=== PATIENT | female | born 1935 | race American Indian/Alaskan Native ===

== ENCOUNTER 2017-04-07 15:08 | Emergency (ER) | payer MEDICARE ==
[~2017-04-07] VITALS: Ht 157.5 cm; Wt 63.5 kg
[~2017-04-07 15:08] MED LIST: ACET325 PO; ACET500 PO; ALBIPROI INH; ALBU.083IS IH; ALBU3IS INH; ALBU90OI6; ALBU90OI6 INH; AMLO10 PO; AMLO5 PO; ASPI81CH PO; AZIT250 PO; AZIT500 PO; Accuneb1.25 MG/3; Advair Hfa 115-12 GM INH; Albuterol2.5 MG/0.5 INH; BECL40OI INH; Bacid1 EACH PO; CARV3.125 PO; CEFP200 PO; CEPH500 PO; CHLO25B; CHOL10002 PO; CLOP75; CYCL10 PO; Cardizem CD 24240 MG PO; Cartia Xt240 MG PO; DILT120 PO; DILT180 PO; DILT180ER PO; DOCU100 PO; DULERA 100 MCG/13 GM INH; DULERA 200 MCG/13 GM INH; ERGO400 PO; FAMO20 PO; FISH1000 PO; FLUSAL115; FLUSAL2505 INH; Flonase 0.05% N16 GM; GUAI600T33 PO; LEVFLO500 PO; LORA10 PO; LOSA50 PO; LOSARTAN POTAS100 MG PO; MECL25 PO; METO50 PO; METO50ER PO; MULVITMIND PO; OMEP20ER PO; ONDA4 PO; OXYACE7.5T PO; POTA10T; PRED10 PO; PRED20 PO; Prednisone20 MG PO; SULTRIDS PO; TELM80; TIOT18 INH; VITAMINS; Ventolin Soln3 ML INH; Vibramycin100 MG PO; Vitamin B Comple1 EA PO; WARF5 PO
[2017-04-07 16:00] LABS: BASOPHILS ABSOLUTE AUTO 0.03 K/mm3 (0.00-0.23); BASOPHILS PERCENT AUTO 0 % (0-2); EOSINOPHILS ABSOLUTE AUTO 0.21 K/mm3 (0.00-0.68); EOSINOPHILS PERCENT AUTO 3 % (0-6); Hematocrit 47.6 % (33.0-51.0); Hemoglobin 16.2 g/dL (11.5-16.0); IMMATURE GRAN ABSOLUTE AUTO 0.02 K/mm3 (0.00-0.10); IMMATURE GRAN PERCENT AUTO 0 % (0-1); LYMPHOCYTES ABSOLUTE AUTO 2.17 K/mm3 (0.84-5.20); LYMPHOCYTES PERCENT AUTO 32 % (21-46); MONOCYTES PERCENT AUTO 12 % (4-13); Mean Corpuscular HGB 29.6 pg (26.0-34.0); Mean Corpuscular Volume 87 fL (80-100); Mean Platelet Volume 8.9 fL (9.1-12.4); NEUTROPHILS ABSOLUTE AUTO 3.61 K/mm3 (1.96-9.15); NEUTROPHILS PERCENT AUTO 53 % (41-73); Platelet Count 248 K/mm3 (150-400); RDW Coefficient Variation 13.5 % (11.7-14.2); RDW Standard Deviation 42.9 fL (35.1-46.3); Red Blood Cell Count 5.47 M/mm3 (3.80-5.20); White Blood Cell Count 6.84 K/mm3 (4.00-11.30)
[2017-04-07 16:20] LABS: Alanine Aminotransfer (ALT/SGP 29 U/L (12-78); Albumin/Globulin Ratio 0.8 (0.8-1.8); Alk Phos 70 U/L (50-136); Anion Gap 10 mmol/L (6-16); Aspartate Aminotrans (AST/SGOT 20 U/L (12-37); Bilirubin, Total 0.3 mg/dL (0.1-1.0); Blood Urea Nitrogen 16 mg/dL (8-24); Bun/Creatinine Ratio 18.5 (12.0-20.0); CO2, Blood 27 mmol/L (21-32); Calcium, Blood 8.7 mg/dL (8.5-10.1); Chloride, Blood 105 mmol/L (98-108); Creatinine, Blood 0.86 mg/dL (0.40-1.00); Globulin, Blood 3.6 g/dL (2.2-4.0); Glomerular Filtration Rate >60 (60-); Glucose, Blood 94 mg/dL (70-99); Potassium, Blood 3.1 mmol/L (3.5-5.5); Sodium, Blood 142 mmol/L (136-145); Total Protein, Blood 6.6 g/dL (6.4-8.2)
[2017-04-07] MEDS ORDERED: Zofran Odt4 MG PO (19:24)
[2017-04-07 20:42] LABS: Source, Urine Clean Catch
[2017-04-07 20:46] LABS: Bilirubin, Urine Neg (Neg); Blood, Urine 1+ (Neg); Glucose Qualitative, Urine Neg (Neg); Ketones, Urine 1+ (Neg); Leukocyte Esterase, Urine 3+ (Neg); Nitrite, Urine Neg (Neg); Protein, Urine Neg (Neg); Specific Gravity, Urine 1.015 (1.003-1.022); Urobilinogen, Urine NORM (Normal)
[2017-04-07 20:53] LABS: Appearance, Urine Hazy (Clear); Color, Urine Yellow (P-Yellow); Red Blood Cells, Urine 0-2 /hpf (0-2); White Blood Cells, Urine 50-100 /hpf (0-5)
[2017-04-07 20:54] LABS: Bacteria Few /hpf; Mucus Light (0-Heavy); Squamous Epithelial Cells Rare /hpf (Few)
[2017-04-07] MEDS ORDERED: POTA20PAC PO (21:33)
[2017-04-07] MEDS ORDERED: CEPH500 PO ×2 (21:33→21:41)
[2017-04-07] MEDS ORDERED: K-Dur20 MEQ PO (21:41)
== END 2017-04-07 21:51 | disposition home or self-care (01) ==
LOC: ER 15:08
PROVIDERS: Emergency Medicine
DX: E86.0 Dehydration (principal); R11.2 Nausea with vomiting, unspecified; N39.0 Urinary tract infection, site not specified; R19.7 Diarrhea, unspecified; E87.6 Hypokalemia; I10 Essential (primary) hypertension; J44.9 Chronic obstructive pulmonary disease, unspecified; Z88.0 Allergy status to penicillin; Z88.5 Allergy status to narcotic agent; Z88.1 Allergy status to other antibiotic agents; Z88.8 Allergy status to other drugs, medicaments and biological substances; Z79.82 Long term (current) use of aspirin; Z79.2 Long term (current) use of antibiotics; Z79.52 Long term (current) use of systemic steroids; Z79.899 Other long term (current) drug therapy
CPT/HCPCS: 36415; 71046; 80053; 81001; 83690; 83735; 85025; 87086; 96361; 96365; 96375; 96376; 99284; J0696; J2270; J2405; J2550; J7030

== ENCOUNTER 2017-06-19 12:21 | Inpatient (IN) | payer MEDICARE ==
[~2017-06-19] VITALS: Ht 157.5 cm; Wt 53.3 kg
[~2017-06-19 12:21] MED LIST changes: +K-Dur20 MEQ PO; +POTA20PAC PO; +Zofran Odt4 MG PO
[2017-06-19 12:56] LABS: BASOPHILS ABSOLUTE AUTO 0.03 K/mm3 (0.00-0.23); BASOPHILS PERCENT AUTO 0 % (0-2); EOSINOPHILS ABSOLUTE AUTO 0.07 K/mm3 (0.00-0.68); EOSINOPHILS PERCENT AUTO 1 % (0-6); Hematocrit 44.6 % (33.0-51.0); Hemoglobin 14.5 g/dL (11.5-16.0); IMMATURE GRAN ABSOLUTE AUTO 0.05 K/mm3 (0.00-0.10); IMMATURE GRAN PERCENT AUTO 1 % (0-1); LYMPHOCYTES ABSOLUTE AUTO 0.86 K/mm3 (0.84-5.20); LYMPHOCYTES PERCENT AUTO 8 % (21-46); MONOCYTES ABSOLUTE AUTO 0.93 K/mm3 (0.16-1.47); MONOCYTES PERCENT AUTO 8 % (4-13); Mean Corpuscular HGB Conc 32.5 g/dL (31.5-36.5); Mean Corpuscular Volume 89 fL (80-100); Mean Platelet Volume 9.3 fL (9.1-12.4); NEUTROPHILS ABSOLUTE AUTO 9.17 K/mm3 (1.96-9.15); NEUTROPHILS PERCENT AUTO 83 % (41-73); Platelet Count 182 K/mm3 (150-400); RDW Coefficient Variation 13.8 % (11.7-14.2); White Blood Cell Count 11.11 K/mm3 (4.00-11.30)
[2017-06-19 13:19] LABS: Alanine Aminotransfer (ALT/SGP 31 U/L (12-78); Albumin, Blood 2.9 g/dL (3.4-5.0); Albumin/Globulin Ratio 0.7 (0.8-1.8); Alk Phos 98 U/L (50-136); Anion Gap 7 mmol/L (6-16); Aspartate Aminotrans (AST/SGOT 24 U/L (12-37); Blood Urea Nitrogen 15 mg/dL (8-24); Bun/Creatinine Ratio 17.6 (12.0-20.0); CO2, Blood 29 mmol/L (21-32); Calcium, Blood 8.8 mg/dL (8.5-10.1); Chloride, Blood 102 mmol/L (98-108); Creatinine, Blood 0.85 mg/dL (0.40-1.00); Globulin, Blood 4.3 g/dL (2.2-4.0); Glomerular Filtration Rate >60 (60-); Glucose, Blood 179 mg/dL (70-99); Potassium, Blood 3.5 mmol/L (3.5-5.5); Sodium, Blood 138 mmol/L (136-145); Total Protein, Blood 7.2 g/dL (6.4-8.2); Troponin I <0.015 ng/mL (0.000-0.040)
[2017-06-19 15:37] LABS: Influenza A Negative (NEGATIVE); Influenza B Negative (NEGATIVE)
[2017-06-19] MEDS ORDERED: CLARITIN10 MG PO (17:42)
[2017-06-24 12:47] LABS: PCO2 Arterial 48.2 mmHg (35-45); PO2 Arterial 83.6 mmHg (80-100); pH Blood Arterial 7.48 (7.35-7.45)
[2017-06-26] MEDS ORDERED: PRED20 PO (11:51)
[2017-06-26] MEDS ORDERED: BUDE.5 INH (11:52)
[2017-06-26] MEDS ORDERED: Duoneb 2.5-0.5 M3 ML INH (11:53)
== END 2017-06-26 13:24 | disposition home or self-care (01) | DRG 189 ==
LOC: ER 12:21 → MEDS 15:52 → ENPENDDIS 06-26 09:51 → MEDS 06-26 13:24
PROVIDERS: Emergency Medicine; Family Medicine
DX: J96.21 Acute and chronic respiratory failure with hypoxia (principal); E44.0 Moderate protein-calorie malnutrition; R64 Cachexia; J44.1 Chronic obstructive pulmonary disease with (acute) exacerbation; Z99.81 Dependence on supplemental oxygen; J96.12 Chronic respiratory failure with hypercapnia; E87.6 Hypokalemia; I10 Essential (primary) hypertension; M81.0 Age-related osteoporosis without current pathological fracture; I73.9 Peripheral vascular disease, unspecified; Z68.20 Body mass index [BMI] 20.0-20.9, adult; Z86.718 Personal history of other venous thrombosis and embolism; Z88.1 Allergy status to other antibiotic agents; Z88.5 Allergy status to narcotic agent; Z88.0 Allergy status to penicillin; Z88.8 Allergy status to other drugs, medicaments and biological substances; Z79.82 Long term (current) use of aspirin; Z79.899 Other long term (current) drug therapy; Z87.891 Personal history of nicotine dependence
CPT/HCPCS: 36415; 36600; 71046; 80053; 82803; 83880; 84484; 85025; 87804; 93005; 93010; 93306; 94010; 94640; 94644; 94664; 94667; 94760; 96365; 96375; 97161; 98960; 99285; C9113; G8978; G8979; G8980; J1650; J1956; J2930

== ENCOUNTER 2017-07-17 09:36 | Emergency (ER) | payer MEDICARE ==
[~2017-07-17] VITALS: Ht 157.5 cm; Wt 63.5 kg
[~2017-07-17 09:36] MED LIST changes: +BUDE.5 INH; +CLARITIN10 MG PO; +Duoneb 2.5-0.5 M3 ML INH
[2017-07-17 10:39] LABS: BASOPHILS ABSOLUTE AUTO 0.05 K/mm3 (0.00-0.23); BASOPHILS PERCENT AUTO 1 % (0-2); EOSINOPHILS ABSOLUTE AUTO 0.36 K/mm3 (0.00-0.68); EOSINOPHILS PERCENT AUTO 6 % (0-6); Hematocrit 45.4 % (33.0-51.0); Hemoglobin 14.5 g/dL (11.5-16.0); IMMATURE GRAN ABSOLUTE AUTO 0.04 K/mm3 (0.00-0.10); IMMATURE GRAN PERCENT AUTO 1 % (0-1); LYMPHOCYTES ABSOLUTE AUTO 0.77 K/mm3 (0.84-5.20); LYMPHOCYTES PERCENT AUTO 13 % (21-46); MONOCYTES ABSOLUTE AUTO 0.51 K/mm3 (0.16-1.47); MONOCYTES PERCENT AUTO 9 % (4-13); Mean Corpuscular HGB 29.2 pg (26.0-34.0); Mean Corpuscular HGB Conc 31.9 g/dL (31.5-36.5); Mean Corpuscular Volume 92 fL (80-100); Mean Platelet Volume 8.8 fL (9.1-12.4); NEUTROPHILS ABSOLUTE AUTO 4.26 K/mm3 (1.96-9.15); NEUTROPHILS PERCENT AUTO 71 % (41-73); Platelet Count 142 K/mm3 (150-400); RDW Coefficient Variation 15.1 % (11.7-14.2); RDW Standard Deviation 50.5 fL (35.1-46.3); Red Blood Cell Count 4.96 M/mm3 (3.80-5.20); White Blood Cell Count 5.99 K/mm3 (4.00-11.30)
[2017-07-17 11:05] LABS: Alanine Aminotransfer (ALT/SGP 20 U/L (12-78); Albumin, Blood 2.6 g/dL (3.4-5.0); Albumin/Globulin Ratio 0.6 (0.8-1.8); Alk Phos 61 U/L (50-136); Anion Gap 5 mmol/L (6-16); Aspartate Aminotrans (AST/SGOT 13 U/L (12-37); Bilirubin, Total 0.9 mg/dL (0.1-1.0); Blood Urea Nitrogen 17 mg/dL (8-24); Bun/Creatinine Ratio 19.7 (12.0-20.0); CO2, Blood 29 mmol/L (21-32); Calcium, Blood 8.7 mg/dL (8.5-10.1); Chloride, Blood 103 mmol/L (98-108); Creatinine, Blood 0.86 mg/dL (0.40-1.00); Globulin, Blood 4.2 g/dL (2.2-4.0); Glomerular Filtration Rate >60 (60-); Glucose, Blood 116 mg/dL (70-99); Potassium, Blood 4.4 mmol/L (3.5-5.5); Sodium, Blood 137 mmol/L (136-145); Total Protein, Blood 6.8 g/dL (6.4-8.2); Troponin I <0.015 ng/mL (0.000-0.040)
[2017-07-17] MEDS ORDERED: Advair Hfa 230-12 GM (11:19)
[2017-07-17] MEDS ORDERED: TIOT18 INH (11:19)
[2017-07-17] MEDS ORDERED: Flonase 0.05% N16 GM (11:20)
[2017-07-17] MEDS ORDERED: CHOL10002 PO (11:21)
[2017-07-17] MEDS ORDERED: LOSA50 PO (11:21)
[2017-07-17] MEDS ORDERED: DILT120 PO (11:22)
[2017-07-17] MEDS ORDERED: CLARITIN PO (11:23)
[2017-07-17] MEDS ORDERED: FISH OIL OMEGA1 EAC2 PO (11:24)
[2017-07-17] MEDS ORDERED: Hair, Skin & N1 EACH PO (11:24)
[2017-07-17] MEDS ORDERED: PRED20 PO (13:21)
== END 2017-07-17 14:33 | disposition home or self-care (01) ==
LOC: ER 09:36
PROVIDERS: Physician Assistant
DX: J44.9 Chronic obstructive pulmonary disease, unspecified (principal); I10 Essential (primary) hypertension; Z87.891 Personal history of nicotine dependence; Z88.0 Allergy status to penicillin; Z88.5 Allergy status to narcotic agent; Z88.8 Allergy status to other drugs, medicaments and biological substances; Z88.1 Allergy status to other antibiotic agents; Z79.82 Long term (current) use of aspirin; Z79.899 Other long term (current) drug therapy; Z79.51 Long term (current) use of inhaled steroids
CPT/HCPCS: 36415; 71046; 80053; 84484; 85025; 93005; 93010; 94640; 96374; 99284; J2930

== ENCOUNTER 2017-07-27 16:40 | Inpatient (IN) | payer MEDICARE ==
[~2017-07-27] VITALS: Ht 157.5 cm; Wt 62.7 kg
[~2017-07-27 16:40] MED LIST changes: +Advair Hfa 230-12 GM; +CLARITIN PO; +FISH OIL OMEGA1 EAC2 PO; +Hair, Skin & N1 EACH PO
[2017-07-27 17:35] LABS: BASOPHILS ABSOLUTE AUTO 0.06 K/mm3 (0.00-0.23); BASOPHILS PERCENT AUTO 1 % (0-2); EOSINOPHILS ABSOLUTE AUTO 0.24 K/mm3 (0.00-0.68); EOSINOPHILS PERCENT AUTO 3 % (0-6); Hematocrit 43.9 % (33.0-51.0); Hemoglobin 14.3 g/dL (11.5-16.0); IMMATURE GRAN PERCENT AUTO 4 % (0-1); LYMPHOCYTES ABSOLUTE AUTO 0.99 K/mm3 (0.84-5.20); LYMPHOCYTES PERCENT AUTO 10 % (21-46); MONOCYTES ABSOLUTE AUTO 0.95 K/mm3 (0.16-1.47); MONOCYTES PERCENT AUTO 10 % (4-13); Mean Corpuscular HGB 29.4 pg (26.0-34.0); Mean Corpuscular HGB Conc 32.6 g/dL (31.5-36.5); Mean Corpuscular Volume 90 fL (80-100); Mean Platelet Volume 8.6 fL (9.1-12.4); NEUTROPHILS PERCENT AUTO 72 % (41-73); Platelet Count 274 K/mm3 (150-400); RDW Coefficient Variation 15.2 % (11.7-14.2); RDW Standard Deviation 50.5 fL (35.1-46.3); Red Blood Cell Count 4.86 M/mm3 (3.80-5.20); White Blood Cell Count 9.54 K/mm3 (4.00-11.30)
[2017-07-27 17:46] LABS: Troponin I <0.015 ng/mL (0.000-0.040)
[2017-07-27 17:53] LABS: Alanine Aminotransfer (ALT/SGP 19 U/L (12-78); Albumin, Blood 2.6 g/dL (3.4-5.0); Albumin/Globulin Ratio 0.7 (0.8-1.8); Alk Phos 59 U/L (50-136); Anion Gap 4 mmol/L (6-16); Aspartate Aminotrans (AST/SGOT 16 U/L (12-37); Bilirubin, Total 0.3 mg/dL (0.1-1.0); Blood Urea Nitrogen 15 mg/dL (8-24); Bun/Creatinine Ratio 16.4 (12.0-20.0); CO2, Blood 31 mmol/L (21-32); Calcium, Blood 9.1 mg/dL (8.5-10.1); Chloride, Blood 105 mmol/L (98-108); Creatinine, Blood 0.92 mg/dL (0.40-1.00); Globulin, Blood 3.8 g/dL (2.2-4.0); Glomerular Filtration Rate >60 (60-); Glucose, Blood 112 mg/dL (70-99); Potassium, Blood 4.5 mmol/L (3.5-5.5); Sodium, Blood 140 mmol/L (136-145); Total Protein, Blood 6.4 g/dL (6.4-8.2)
[2017-07-27] MEDS ORDERED: DILT120 PO (22:00)
[2017-07-27] MEDS ORDERED: FLUT1DIS5 (22:02)
[2017-07-27] MEDS ORDERED: FLUT1DIS5 INH (22:03)
[2017-07-28 04:54] LABS: Source, Urine Clean Catch
[2017-07-28 04:58] LABS: Appearance, Urine Cloudy (Clear); Bilirubin, Urine Neg (Neg); Blood, Urine 4+ (Neg); Color, Urine Yellow (P-Yellow); Glucose Qualitative, Urine 4+ (Neg); Ketones, Urine 1+ (Neg); Leukocyte Esterase, Urine 3+ (Neg); Nitrite, Urine Neg (Neg); Protein, Urine 1+ (Neg); Urobilinogen, Urine NORM (Normal)
[2017-07-28 05:18] LABS: White Blood Cells, Urine TNTC /hpf (0-5)
[2017-07-28 05:20] LABS: Squamous Epithelial Cells Rare /hpf (Few)
[2017-07-28 05:21] LABS: Bacteria Mod /hpf
[2017-07-28 17:36] LABS: PCO2 Arterial 43.1 mmHg (35-45); pH Blood Arterial 7.47 (7.35-7.45)
[2017-07-30 05:54] LABS: BASOPHILS ABSOLUTE AUTO 0.06 K/mm3 (0.00-0.23); BASOPHILS PERCENT AUTO 0 % (0-2); EOSINOPHILS PERCENT AUTO 0 % (0-6); Hematocrit 39.7 % (33.0-51.0); Hemoglobin 12.9 g/dL (11.5-16.0); IMMATURE GRAN PERCENT AUTO 3 % (0-1); LYMPHOCYTES ABSOLUTE AUTO 0.59 K/mm3 (0.84-5.20); LYMPHOCYTES PERCENT AUTO 3 % (21-46); MONOCYTES ABSOLUTE AUTO 0.42 K/mm3 (0.16-1.47); MONOCYTES PERCENT AUTO 2 % (4-13); Mean Corpuscular HGB Conc 32.5 g/dL (31.5-36.5); Mean Corpuscular Volume 89 fL (80-100); NEUTROPHILS PERCENT AUTO 92 % (41-73); Platelet Count 297 K/mm3 (150-400); RDW Coefficient Variation 14.7 % (11.7-14.2); RDW Standard Deviation 48.1 fL (35.1-46.3); Red Blood Cell Count 4.45 M/mm3 (3.80-5.20); White Blood Cell Count 22.47 K/mm3 (4.00-11.30)
[2017-07-30 06:08] LABS: Anion Gap 6 mmol/L (6-16); Blood Urea Nitrogen 27 mg/dL (8-24); Bun/Creatinine Ratio 29.1 (12.0-20.0); CO2, Blood 30 mmol/L (21-32); Calcium, Blood 8.8 mg/dL (8.5-10.1); Chloride, Blood 105 mmol/L (98-108); Creatinine, Blood 0.93 mg/dL (0.40-1.00); Glomerular Filtration Rate >60 (60-); Glucose, Blood 166 mg/dL (70-99); Sodium, Blood 141 mmol/L (136-145)
[2017-07-30 09:27] LABS: Mean Platelet Volume 9.8 fL (9.1-12.4); Platelet Count 311 K/mm3 (150-400)
[2017-07-30] MEDS ORDERED: ENOX100I SC (13:07)
[2017-07-30] MEDS ORDERED: LEVO750 PO (13:08)
[2017-07-30] MEDS ORDERED: WARF5 PO (13:09)
== END 2017-07-30 14:01 | disposition home or self-care (01) | DRG 189 ==
LOC: ER 16:40 → MEDS 19:26 → ENPENDDIS 07-30 09:45 → MEDS 07-30 14:01
PROVIDERS: Internal Medicine; Pharmacist
DX: J96.21 Acute and chronic respiratory failure with hypoxia (principal); I26.99 Other pulmonary embolism without acute cor pulmonale; J44.1 Chronic obstructive pulmonary disease with (acute) exacerbation; N39.0 Urinary tract infection, site not specified; Z99.81 Dependence on supplemental oxygen; E78.5 Hyperlipidemia, unspecified; I10 Essential (primary) hypertension; Z66 Do not resuscitate; Z51.5 Encounter for palliative care; Z86.711 Personal history of pulmonary embolism; Z86.718 Personal history of other venous thrombosis and embolism; Z79.01 Long term (current) use of anticoagulants; I49.3 Ventricular premature depolarization; D64.9 Anemia, unspecified; B96.5 Pseudomonas (aeruginosa) (mallei) (pseudomallei) as the cause of diseases classified elsewhere
CPT/HCPCS: 36415; 36600; 71046; 71260; 78582; 80048; 80053; 81001; 82803; 83880; 84484; 85025; 85049; 85379; 85730; 87077; 87086; 87186; 93005; 93010; 93970; 94640; 94644; 94760; 96374; 99285; A9540; A9558; J1200; J1644; J1650; J2920; J2930; J7030; Q9967

== ENCOUNTER 2017-07-31 00:07 | Day surgery (SDC) | payer MEDICARE ==
[~2017-07-31 00:07] MED LIST changes: +ENOX100I SC; +FLUT1DIS5; +FLUT1DIS5 INH; +LEVO750 PO
== END 2017-07-31 11:40 | disposition home or self-care (01) ==
LOC: ATC 00:07
DX: J44.1 Chronic obstructive pulmonary disease with (acute) exacerbation (principal); J96.11 Chronic respiratory failure with hypoxia; Z99.81 Dependence on supplemental oxygen; I10 Essential (primary) hypertension; E78.5 Hyperlipidemia, unspecified; Z86.711 Personal history of pulmonary embolism; Z87.891 Personal history of nicotine dependence
CPT/HCPCS: 96372; J1650

== ENCOUNTER 2017-08-04 00:43 | Day surgery (SDC) | payer MEDICARE | END 2017-08-04 15:48 | disposition home or self-care (01) | LOC: ATC 00:43 | DX: J44.1 Chronic obstructive pulmonary disease with (acute) exacerbation (principal); J96.11 Chronic respiratory failure with hypoxia; Z99.81 Dependence on supplemental oxygen; I10 Essential (primary) hypertension; E78.5 Hyperlipidemia, unspecified | CPT/HCPCS: 96372; J1650 ==

== ENCOUNTER 2017-08-05 00:44 | Day surgery (SDC) | payer MEDICARE | END 2017-08-05 16:15 | disposition home or self-care (01) | LOC: ATC 00:44 | DX: J44.1 Chronic obstructive pulmonary disease with (acute) exacerbation (principal); J96.11 Chronic respiratory failure with hypoxia; I10 Essential (primary) hypertension; E78.5 Hyperlipidemia, unspecified; Z99.81 Dependence on supplemental oxygen | CPT/HCPCS: 85610; 96372; J1650 ==

== ENCOUNTER 2017-08-06 00:22 | Day surgery (SDC) | payer MEDICARE | END 2017-08-06 15:55 | disposition home or self-care (01) | LOC: ATC 00:22 | DX: J44.1 Chronic obstructive pulmonary disease with (acute) exacerbation (principal); J96.11 Chronic respiratory failure with hypoxia; I26.99 Other pulmonary embolism without acute cor pulmonale; E78.5 Hyperlipidemia, unspecified; Z87.891 Personal history of nicotine dependence; I10 Essential (primary) hypertension | CPT/HCPCS: 36416; 85610; 96372; J1650 ==

== ENCOUNTER 2017-08-07 02:16 | Day surgery (SDC) | payer MEDICARE | END 2017-08-07 16:00 | disposition home or self-care (01) | LOC: ATC 02:16 | DX: J44.1 Chronic obstructive pulmonary disease with (acute) exacerbation (principal); I26.99 Other pulmonary embolism without acute cor pulmonale; J96.11 Chronic respiratory failure with hypoxia; I10 Essential (primary) hypertension; E78.5 Hyperlipidemia, unspecified; Z87.891 Personal history of nicotine dependence | CPT/HCPCS: 36416; 85610; 96372; J1650 ==

== ENCOUNTER 2017-08-09 00:29 | Day surgery (SDC) | payer MEDICARE | END 2017-08-09 22:46 | disposition home or self-care (01) | LOC: ATC 00:29 | DX: J44.1 Chronic obstructive pulmonary disease with (acute) exacerbation (principal); J96.11 Chronic respiratory failure with hypoxia; I26.99 Other pulmonary embolism without acute cor pulmonale; Z99.81 Dependence on supplemental oxygen; I10 Essential (primary) hypertension; E78.5 Hyperlipidemia, unspecified; Z87.891 Personal history of nicotine dependence | CPT/HCPCS: J1650 ==

== ENCOUNTER 2017-08-10 00:12 | Day surgery (SDC) | payer MEDICARE | END 2017-08-10 22:46 | disposition home or self-care (01) | LOC: ATC 00:12 | DX: J44.1 Chronic obstructive pulmonary disease with (acute) exacerbation (principal); J96.11 Chronic respiratory failure with hypoxia; E78.5 Hyperlipidemia, unspecified; I10 Essential (primary) hypertension; Z99.81 Dependence on supplemental oxygen ==

== ENCOUNTER → 2017-10-10 | Outpatient (CLI) | payer MEDICARE | END | disposition home or self-care (01) | LOC: LAB 13:20 → LAB SHORT 13:20 | DX: R30.0 Dysuria (principal) | CPT/HCPCS: 87077; 87086; 87186 ==

== ENCOUNTER 2018-04-25 13:18 | Emergency (ER) | payer MEDICARE ==
[~2018-04-25] VITALS: Ht 157.5 cm; Wt 61.7 kg
[~2018-04-25 13:18] MED LIST changes: +CARV25 PO; -CARV3.125 PO
[2018-04-25 14:25] LABS: BASOPHILS ABSOLUTE AUTO 0.02 K/mm3 (0.00-0.23); BASOPHILS PERCENT AUTO 0 % (0-2); EOSINOPHILS PERCENT AUTO 2 % (0-6); Hematocrit 47.8 % (33.0-51.0); Hemoglobin 15.1 g/dL (11.5-16.0); IMMATURE GRAN ABSOLUTE AUTO 0.03 K/mm3 (0.00-0.10); IMMATURE GRAN PERCENT AUTO 0 % (0-1); LYMPHOCYTES ABSOLUTE AUTO 0.82 K/mm3 (0.84-5.20); LYMPHOCYTES PERCENT AUTO 9 % (21-46); MONOCYTES ABSOLUTE AUTO 0.47 K/mm3 (0.16-1.47); MONOCYTES PERCENT AUTO 5 % (4-13); Mean Corpuscular HGB 29.4 pg (26.0-34.0); Mean Corpuscular HGB Conc 31.6 g/dL (31.5-36.5); Mean Corpuscular Volume 93 fL (80-100); Mean Platelet Volume 9.1 fL (9.1-12.4); NEUTROPHILS ABSOLUTE AUTO 7.21 K/mm3 (1.96-9.15); NEUTROPHILS PERCENT AUTO 82 % (41-73); Platelet Count 179 K/mm3 (150-400); RDW Coefficient Variation 13.5 % (11.7-14.2); RDW Standard Deviation 45.9 fL (35.1-46.3); Red Blood Cell Count 5.14 M/mm3 (3.80-5.20); White Blood Cell Count 8.75 K/mm3 (4.00-11.30)
[2018-04-25 14:39] LABS: International Normalized Ratio 3.23; Prothrombin Time Results 30.8 Sec (9.7-11.5)
[2018-04-25 14:40] LABS: Alanine Aminotransfer (ALT/SGP 28 U/L (12-78); Albumin, Blood 3.5 g/dL (3.4-5.0); Albumin/Globulin Ratio 0.9 (0.8-1.8); Alk Phos 77 U/L (50-136); Anion Gap 4 mmol/L (6-16); Aspartate Aminotrans (AST/SGOT 29 U/L (12-37); Bilirubin, Total 0.3 mg/dL (0.1-1.0); Blood Urea Nitrogen 19 mg/dL (8-24); CO2, Blood 32 mmol/L (21-32); Calcium, Blood 8.8 mg/dL (8.5-10.1); Chloride, Blood 104 mmol/L (98-108); Creatinine, Blood 0.91 mg/dL (0.40-1.00); Globulin, Blood 3.8 g/dL (2.2-4.0); Glomerular Filtration Rate >60 (60-); Glucose, Blood 110 mg/dL (70-99); Potassium, Blood 4.1 mmol/L (3.5-5.5); Sodium, Blood 140 mmol/L (136-145); Total Protein, Blood 7.3 g/dL (6.4-8.2)
[2018-04-25] MEDS ORDERED: DILT120 PO (15:03)
[2018-04-25] MEDS ORDERED: ONDA4ODT MM (16:48)
== END 2018-04-25 17:05 | disposition home or self-care (01) ==
LOC: ER 13:18
PROVIDERS: Emergency Medicine; Physician Assistant
DX: R19.7 Diarrhea, unspecified (principal); E86.0 Dehydration; J44.9 Chronic obstructive pulmonary disease, unspecified; I10 Essential (primary) hypertension; Z86.718 Personal history of other venous thrombosis and embolism; Z86.711 Personal history of pulmonary embolism; Z88.0 Allergy status to penicillin; Z88.5 Allergy status to narcotic agent; Z88.1 Allergy status to other antibiotic agents; Z88.8 Allergy status to other drugs, medicaments and biological substances; Z79.899 Other long term (current) drug therapy; Z79.01 Long term (current) use of anticoagulants; Z87.891 Personal history of nicotine dependence; Z99.81 Dependence on supplemental oxygen
CPT/HCPCS: 36415; 80053; 85025; 85610; 96360; 96361; 99284-25; J7030

== ENCOUNTER 2018-06-28 17:06 | Inpatient (IN) | payer MEDICARE ==
[~2018-06-28] VITALS: Ht 157.5 cm; Wt 71.2 kg
[~2018-06-28 17:06] MED LIST changes: +ALBU3IS NEB; +Aspirin EC81 MG PO; -CARV25 PO; +Carvedilol12.5 MG PO; -Duoneb 2.5-0.5 M3 ML INH; +ONDA4ODT MM
[2018-06-28 17:34] LABS: BASOPHILS ABSOLUTE AUTO 0.04 K/mm3 (0.00-0.23); BASOPHILS PERCENT AUTO 1 % (0-2); EOSINOPHILS ABSOLUTE AUTO 0.35 K/mm3 (0.00-0.68); EOSINOPHILS PERCENT AUTO 6 % (0-6); IMMATURE GRAN ABSOLUTE AUTO 0.02 K/mm3 (0.00-0.10); IMMATURE GRAN PERCENT AUTO 0 % (0-1); LYMPHOCYTES ABSOLUTE AUTO 2.01 K/mm3 (0.84-5.20); LYMPHOCYTES PERCENT AUTO 32 % (21-46); MONOCYTES ABSOLUTE AUTO 0.55 K/mm3 (0.16-1.47); MONOCYTES PERCENT AUTO 9 % (4-13); Mean Corpuscular HGB 29.4 pg (26.0-34.0); Mean Corpuscular HGB Conc 31.8 g/dL (31.5-36.5); Mean Corpuscular Volume 92 fL (80-100); Mean Platelet Volume 9.4 fL (9.1-12.4); NEUTROPHILS PERCENT AUTO 53 % (41-73); Platelet Count 192 K/mm3 (150-400); RDW Coefficient Variation 13.9 % (11.7-14.2); RDW Standard Deviation 47.3 fL (35.1-46.3); Red Blood Cell Count 4.76 M/mm3 (3.80-5.20); White Blood Cell Count 6.37 K/mm3 (4.00-11.30)
[2018-06-28 17:48] LABS: International Normalized Ratio 1.83; Prothrombin Time Results 18.4 Sec (9.7-11.5)
[2018-06-28 18:00] LABS: Alanine Aminotransfer (ALT/SGP 22 U/L (12-78); Albumin, Blood 3.2 g/dL (3.4-5.0); Albumin/Globulin Ratio 0.9 (0.8-1.8); Alk Phos 71 U/L (50-136); Anion Gap 7 mmol/L (6-16); Aspartate Aminotrans (AST/SGOT 16 U/L (12-37); Bilirubin, Total 0.3 mg/dL (0.1-1.0); Blood Urea Nitrogen 21 mg/dL (8-24); Bun/Creatinine Ratio 26.9 (12.0-20.0); CO2, Blood 30 mmol/L (21-32); Calcium, Blood 8.9 mg/dL (8.5-10.1); Chloride, Blood 104 mmol/L (98-108); Creatinine, Blood 0.78 mg/dL (0.40-1.00); Globulin, Blood 3.7 g/dL (2.2-4.0); Glomerular Filtration Rate >60 (60-); Glucose, Blood 161 mg/dL (70-99); Potassium, Blood 3.8 mmol/L (3.5-5.5); Sodium, Blood 141 mmol/L (136-145); Total Protein, Blood 6.9 g/dL (6.4-8.2); Troponin I <0.015 ng/mL (0.000-0.040)
[2018-06-28] MEDS ORDERED: BUDE6HFA INH (20:29)
[2018-06-28] MEDS ORDERED: ACET500 (20:29)
[2018-06-28] MEDS ORDERED: Cardizem CD 24240 MG PO (20:30)
[2018-06-28] MEDS ORDERED: WARF7.5 PO (22:37)
[2018-06-28] MEDS ORDERED: THERA1 EACH PO (22:39)
[2018-06-28] MEDS ORDERED: B Complex #11 EACH PO (22:39)
[2018-06-28] MEDS ORDERED: Loratadine10 MG PO (22:40)
[2018-06-28] MEDS ORDERED: Omega 3 1,0001 EACH PO (22:41)
--- NOTE | 2018-06-29 00:05 | NUR ---
0005 ADMIT: PT ARRIVES TO ROOM 210 VIA GOURNEY FROM ER AND TRANSFERS SELF TO BED; APPEARS STEADY ON FEET AND DENIES PAIN OR DIZZINESS WITH MOVEMENT. PT BECOMES SOB WITH MOVEMENT AND SPEECH BUT RECOVERS QUICKLY AND MAINTAINS SPO2 >92% ON 2L O2 VIA NC. PT ORIENTED TO BED, ROOM, FALL POLICIES AND CALL SYSTEM.
[2018-06-29 03:39] LABS: Source, Urine Clean Catch
[2018-06-29 03:41] LABS: Appearance, Urine Cloudy (Clear); Bilirubin, Urine Neg (Neg); Blood, Urine 2+ (Neg); Color, Urine Yellow (P-Yellow); Glucose Qualitative, Urine Neg (Neg); Ketones, Urine Neg (Neg); Leukocyte Esterase, Urine 3+ (Neg); Nitrite, Urine Pos (Neg); Protein, Urine 1+ (Neg); Specific Gravity, Urine 1.015 (1.003-1.022); Urobilinogen, Urine NORM (Normal)
[2018-06-29 03:57] LABS: Amorphous Heavy (0-Heavy); Bacteria Many /hpf; Squamous Epithelial Cells Few /hpf (Few); Triple Phosphate Crystals Mod /hpf; White Blood Cells, Urine 25-50 /hpf (0-5)
[2018-06-29 04:29] LABS: International Normalized Ratio 1.58; Prothrombin Time Results 16.1 Sec (9.7-11.5)
--- NOTE | 2018-06-29 07:20 | NUR ---
SUMMARY: NEW ADMIT ACUTE RESPIRATORY FAILURE BY DR. MARTIN. HTN APPEARS RESOLVED AT THIS TIME, PT TAKES SEVERAL BP MEDS AND MISSED DOSES PREVIOUS EVENING. VSS, 2L O2 VIA NC. SPECIMEN OBTAINED AND UA SENT TO LAB. CONTINUE TO ENCOURAGE PO FLUID INTAKE AND MEDICATE WITH SOLUMEDROL.
--- NOTE | 2018-06-29 17:31 | NUR ---
SHIFT SUMMARY PT HAS REMAINED STABLE THIS SHIFT. PT DENIES SHORTNESS OF BREATH WHEN AT REST; SHE BECOMES MILDLY SHORT OF BREATH WITH ACTIVITY. VSS. PT IS A SBA WHEN OOB. WILL MONITOR UNTIL REPORT TO ONCOMING RN.
[2018-06-30 05:06] LABS: BASOPHILS ABSOLUTE AUTO 0.01 K/mm3 (0.00-0.23); BASOPHILS PERCENT AUTO 0 % (0-2); EOSINOPHILS PERCENT AUTO 0 % (0-6); Hematocrit 41.1 % (33.0-51.0); Hemoglobin 13.3 g/dL (11.5-16.0); IMMATURE GRAN ABSOLUTE AUTO 0.08 K/mm3 (0.00-0.10); IMMATURE GRAN PERCENT AUTO 1 % (0-1); LYMPHOCYTES ABSOLUTE AUTO 0.86 K/mm3 (0.84-5.20); LYMPHOCYTES PERCENT AUTO 6 % (21-46); MONOCYTES ABSOLUTE AUTO 0.27 K/mm3 (0.16-1.47); MONOCYTES PERCENT AUTO 2 % (4-13); Mean Corpuscular HGB Conc 32.4 g/dL (31.5-36.5); Mean Corpuscular Volume 90 fL (80-100); Mean Platelet Volume 9.9 fL (9.1-12.4); NEUTROPHILS ABSOLUTE AUTO 14.06 K/mm3 (1.96-9.15); NEUTROPHILS PERCENT AUTO 92 % (41-73); Platelet Count 183 K/mm3 (150-400); RDW Coefficient Variation 14.1 % (11.7-14.2); RDW Standard Deviation 45.8 fL (35.1-46.3); Red Blood Cell Count 4.59 M/mm3 (3.80-5.20); White Blood Cell Count 15.28 K/mm3 (4.00-11.30)
[2018-06-30 05:19] LABS: International Normalized Ratio 2.23
[2018-06-30 05:29] LABS: Anion Gap 7 mmol/L (6-16); Blood Urea Nitrogen 26 mg/dL (8-24); Bun/Creatinine Ratio 33.7 (12.0-20.0); CO2, Blood 28 mmol/L (21-32); Calcium, Blood 9.2 mg/dL (8.5-10.1); Chloride, Blood 106 mmol/L (98-108); Creatinine, Blood 0.77 mg/dL (0.40-1.00); Glomerular Filtration Rate >60 (60-); Glucose, Blood 188 mg/dL (70-99); Potassium, Blood 3.9 mmol/L (3.5-5.5); Sodium, Blood 141 mmol/L (136-145)
--- NOTE | 2018-06-30 06:42 | NUR ---
LYING IN SEMI FOWLERS WITH EYES OPEN WHILE READING A BOOK. REPOSITIONS SELF FOR COMFORT. DENIES FURTHER NEEDS AT THIS TIME. SAFETY MEASURES IN PLACE. WILL GIVE HAND OFF TO ONCOMING SHIFT USING SBAR,
--- NOTE | 2018-06-30 09:07 | NUR ---
ISTRATE BEEN TO SEE PT. REPORTS WILL D/C LATER TODAY. DISCUSSED PT REPORTS WEARING O2 AT HOME ALREADY. REQ HOME O2 EVAL TO RE-EVALUATE. WILL DISCUSS WITH RT.
--- NOTE | 2018-06-30 09:49 | NUR ---
Patient awaiting discharge. RT is in room completing home O2 eval.
--- NOTE | 2018-06-30 11:13 | NUR ---
PT REQ TO HAVE NEW WOULD LIKE ABX BEFORE GOING HOME.
--- NOTE | 2018-06-30 13:40 | NUR ---
Met ap t. in bed laxed and watching T.V, Pt reports to be doing well and may be going bhome today or matta offerd prayers and wished her all the mbest
[2018-06-30] MEDS ORDERED: ACET325 PO (14:49)
[2018-06-30] MEDS ORDERED: ALBU90OI INH (14:49)
[2018-06-30] MEDS ORDERED: ASPI81CH PO (14:50)
[2018-06-30] MEDS ORDERED: DOXY100 PO (14:51)
[2018-06-30] MEDS ORDERED: PRED10 PO (14:52)
--- NOTE | 2018-06-30 15:08 | NUR ---
DISCHARGE DISCUSSED DISCHARGE MEDS AND INSTRUCTIONS. MEDS CALLED TO [facility]. PT STATES UNDERSTANDING OF INSTRUCTIONS. COMFORTABLE WITH DISCHARGE, FRIEND AT SIDE. ESCORTED VIA W/C TO VEHICLE.
== END 2018-06-30 15:13 | disposition home health service (06) | DRG 189 ==
LOC: ER 17:06 → ERHOLD 22:23 → SURS 22:23
PROVIDERS: Family Medicine; Physician Assistant; ADMIT Hospitalist
DX: J96.21 Acute and chronic respiratory failure with hypoxia (principal); N39.0 Urinary tract infection, site not specified; J43.9 Emphysema, unspecified; I10 Essential (primary) hypertension; Z86.711 Personal history of pulmonary embolism; Z86.718 Personal history of other venous thrombosis and embolism; Z79.01 Long term (current) use of anticoagulants; Z87.891 Personal history of nicotine dependence; Z99.81 Dependence on supplemental oxygen; R79.1 Abnormal coagulation profile
CPT/HCPCS: 36415; 71046; 76770; 80048; 80053; 81001; 84484; 85025; 85610; 87077; 87086; 87186; 93005; 93010; 94640; 94760; 94761; 99285-25; J2930

== ENCOUNTER → 2018-07-22 | Outpatient (CLI) | payer MEDICARE ==
[~2018-07-22] MED LIST changes: +ACET500; +ALBU90OI INH; +B Complex #11 EACH PO; +BUDE6HFA INH; +DOXY100 PO; +Loratadine10 MG PO; +Omega 3 1,0001 EACH PO; +THERA1 EACH PO; +WARF7.5 PO
== END | disposition home or self-care (01) ==
LOC: LAB SHORT 11:33 → LAB 11:33
DX: R30.0 Dysuria (principal)
CPT/HCPCS: 87086

== ENCOUNTER 2018-10-30 20:45 | Emergency (ER) | payer MEDICARE ==
[~2018-10-30] VITALS: Ht 157.5 cm; Wt 63.5 kg
[2018-10-30 21:07] LABS: BASOPHILS ABSOLUTE AUTO 0.05 K/mm3 (0.00-0.23); BASOPHILS PERCENT AUTO 1 % (0-2); EOSINOPHILS ABSOLUTE AUTO 0.42 K/mm3 (0.00-0.68); EOSINOPHILS PERCENT AUTO 6 % (0-6); Hemoglobin 14.4 g/dL (11.5-16.0); IMMATURE GRAN ABSOLUTE AUTO 0.03 K/mm3 (0.00-0.10); IMMATURE GRAN PERCENT AUTO 0 % (0-1); LYMPHOCYTES ABSOLUTE AUTO 2.03 K/mm3 (0.84-5.20); LYMPHOCYTES PERCENT AUTO 30 % (21-46); MONOCYTES ABSOLUTE AUTO 0.63 K/mm3 (0.16-1.47); MONOCYTES PERCENT AUTO 9 % (4-13); Mean Corpuscular HGB 29.6 pg (26.0-34.0); Mean Corpuscular Volume 92 fL (80-100); Mean Platelet Volume 9.1 fL (9.1-12.4); NEUTROPHILS ABSOLUTE AUTO 3.68 K/mm3 (1.96-9.15); NEUTROPHILS PERCENT AUTO 54 % (41-73); Platelet Count 195 K/mm3 (150-400); RDW Coefficient Variation 13.7 % (11.7-14.2); RDW Standard Deviation 46.8 fL (35.1-46.3); Red Blood Cell Count 4.87 M/mm3 (3.80-5.20); White Blood Cell Count 6.84 K/mm3 (4.00-11.30)
[2018-10-30 21:48] LABS: Alanine Aminotransfer (ALT/SGP 17 U/L (12-78); Albumin, Blood 3.3 g/dL (3.4-5.0); Albumin/Globulin Ratio 0.9 (0.8-1.8); Alk Phos 70 U/L (50-136); Anion Gap 7 mmol/L (6-16); Aspartate Aminotrans (AST/SGOT 23 U/L (12-37); Bilirubin, Total 0.3 mg/dL (0.1-1.0); Blood Urea Nitrogen 20 mg/dL (8-24); Bun/Creatinine Ratio 22.3 (12.0-20.0); CO2, Blood 25 mmol/L (21-32); Calcium, Blood 8.9 mg/dL (8.5-10.1); Chloride, Blood 109 mmol/L (98-108); Globulin, Blood 3.8 g/dL (2.2-4.0); Glomerular Filtration Rate >60 (60-); Glucose, Blood 170 mg/dL (70-99); Potassium, Blood 4.3 mmol/L (3.5-5.5); Sodium, Blood 141 mmol/L (136-145); Total Protein, Blood 7.1 g/dL (6.4-8.2); Troponin I <0.015 ng/mL (0.000-0.040)
[2018-10-30] MEDS ORDERED: Prednisone20 MG PO (22:39)
== END 2018-10-30 23:31 | disposition home or self-care (01) ==
LOC: ER 20:45
PROVIDERS: Physician Assistant
DX: J44.1 Chronic obstructive pulmonary disease with (acute) exacerbation (principal); I10 Essential (primary) hypertension; Z88.0 Allergy status to penicillin; Z88.5 Allergy status to narcotic agent; Z88.1 Allergy status to other antibiotic agents; Z88.8 Allergy status to other drugs, medicaments and biological substances; Z91.09 Other allergy status, other than to drugs and biological substances; Z79.899 Other long term (current) drug therapy; Z86.711 Personal history of pulmonary embolism; Z86.718 Personal history of other venous thrombosis and embolism; Z87.891 Personal history of nicotine dependence
CPT/HCPCS: 36415; 71046; 80053; 83880; 84484; 85025; 93005; 93010; 94640; 96374; 99284-25; J2930

== ENCOUNTER 2020-09-06 16:47 | Emergency (ER) | payer MEDICARE ==
[~2020-09-06] VITALS: Ht 157.5 cm; Wt 63.5 kg
[2020-09-06 17:58] LABS: BASOPHILS ABSOLUTE AUTO 0.04 K/mm3 (0.00-0.23); BASOPHILS PERCENT AUTO 1 % (0-2); EOSINOPHILS ABSOLUTE AUTO 0.38 K/mm3 (0.00-0.68); EOSINOPHILS PERCENT AUTO 5 % (0-6); Hematocrit 44.5 % (33.0-51.0); Hemoglobin 14.2 g/dL (11.5-16.0); IMMATURE GRAN ABSOLUTE AUTO 0.05 K/mm3 (0.00-0.10); IMMATURE GRAN PERCENT AUTO 1 % (0-1); LYMPHOCYTES ABSOLUTE AUTO 1.45 K/mm3 (0.84-5.20); LYMPHOCYTES PERCENT AUTO 20 % (21-46); MONOCYTES ABSOLUTE AUTO 0.71 K/mm3 (0.16-1.47); MONOCYTES PERCENT AUTO 10 % (4-13); Mean Corpuscular HGB 29.1 pg (26.0-34.0); Mean Corpuscular HGB Conc 31.9 g/dL (31.5-36.5); Mean Corpuscular Volume 91 fL (80-100); NEUTROPHILS ABSOLUTE AUTO 4.79 K/mm3 (1.96-9.15); NEUTROPHILS PERCENT AUTO 65 % (41-73); RDW Standard Deviation 47.4 fL (35.1-46.3); Red Blood Cell Count 4.88 M/mm3 (3.80-5.20); White Blood Cell Count 7.42 K/mm3 (4.00-11.30)
[2020-09-06 18:06] LABS: International Normalized Ratio 2.13
[2020-09-06 18:12] LABS: Alanine Aminotransfer (ALT/SGP 24 U/L (12-78); Albumin, Blood 3.2 g/dL (3.4-5.0); Albumin/Globulin Ratio 0.8 (0.8-1.8); Alk Phos 69 U/L (50-136); Anion Gap 0 mmol/L (6-16); Aspartate Aminotrans (AST/SGOT 23 U/L (12-37); Bilirubin, Total 0.5 mg/dL (0.1-1.0); Blood Urea Nitrogen 23 mg/dL (8-24); Bun/Creatinine Ratio 26.2 (12.0-20.0); CO2, Blood 35 mmol/L (21-32); Chloride, Blood 104 mmol/L (98-108); Creatinine, Blood 0.88 mg/dL (0.40-1.00); Glomerular Filtration Rate >60 (60-); Glucose, Blood 143 mg/dL (70-99); Platelet Count 225 K/mm3 (150-400); Potassium, Blood 4.3 mmol/L (3.5-5.5); Sodium, Blood 139 mmol/L (136-145); Total Protein, Blood 7.2 g/dL (6.4-8.2); Troponin I <0.015 ng/mL (0.000-0.040)
[2020-09-06] MEDS ORDERED: Mucus Relief400 MG PO (19:50)
[2020-09-06] MEDS ORDERED: AIRDUO RESPICL1 EAC1 INH (19:52)
== END 2020-09-06 20:57 | disposition home or self-care (01) ==
LOC: ER 16:47
PROVIDERS: Physician Assistant
DX: R06.02 Shortness of breath (principal); M79.661 Pain in right lower leg; I10 Essential (primary) hypertension; J43.9 Emphysema, unspecified; Z86.711 Personal history of pulmonary embolism; Z88.0 Allergy status to penicillin; Z88.5 Allergy status to narcotic agent; Z88.1 Allergy status to other antibiotic agents; Z88.8 Allergy status to other drugs, medicaments and biological substances; Z79.01 Long term (current) use of anticoagulants; Z87.891 Personal history of nicotine dependence
CPT/HCPCS: 36415; 71045; 80053; 84484; 85025; 85610; 93005; 93010; 93971; 99284-25

== ENCOUNTER 2021-07-09 12:20 | Emergency (ER) | payer MEDICARE ==
[~2021-07-09] VITALS: Ht 162.6 cm; Wt 64.4 kg
[~2021-07-09 12:20] MED LIST changes: +AIRDUO RESPICL1 EAC1 INH; +Mucus Relief400 MG PO
[2021-07-09 12:51] LABS: BASOPHILS ABSOLUTE AUTO 0.04 K/mm3 (0.00-0.23); BASOPHILS PERCENT AUTO 1 % (0-2); EOSINOPHILS ABSOLUTE AUTO 0.21 K/mm3 (0.00-0.68); EOSINOPHILS PERCENT AUTO 3 % (0-6); Hematocrit 44.8 % (33.0-51.0); IMMATURE GRAN ABSOLUTE AUTO 0.03 K/mm3 (0.00-0.10); IMMATURE GRAN PERCENT AUTO 0 % (0-1); LYMPHOCYTES ABSOLUTE AUTO 1.93 K/mm3 (0.84-5.20); LYMPHOCYTES PERCENT AUTO 27 % (21-46); MONOCYTES ABSOLUTE AUTO 0.69 K/mm3 (0.16-1.47); MONOCYTES PERCENT AUTO 10 % (4-13); Mean Corpuscular HGB 28.7 pg (26.0-34.0); Mean Corpuscular HGB Conc 31.3 g/dL (31.5-36.5); Mean Corpuscular Volume 92 fL (80-100); Mean Platelet Volume 9.1 fL (9.1-12.4); NEUTROPHILS PERCENT AUTO 60 % (41-73); Platelet Count 209 K/mm3 (150-400); RDW Coefficient Variation 13.7 % (11.7-14.2); RDW Standard Deviation 46.8 fL (35.1-46.3); Red Blood Cell Count 4.88 M/mm3 (3.80-5.20)
[2021-07-09 13:10] LABS: Albumin, Blood 3.1 g/dL (3.4-5.0); Albumin/Globulin Ratio 0.8 (0.8-1.8); Bilirubin, Total 0.4 mg/dL (0.1-1.0); Bun/Creatinine Ratio 21.8 (12.0-20.0); Calcium, Blood 9.3 mg/dL (8.5-10.1); Creatinine, Blood 0.92 mg/dL (0.40-1.00); Potassium, Blood 4.2 mmol/L (3.5-5.5); Total Protein, Blood 7.1 g/dL (6.4-8.2)
== END 2021-07-09 20:28 | disposition left against medical advice (07) ==
LOC: ER 12:20
PROVIDERS: Student in an Organized Health Care Education/Training Program
DX: Z53.21 Procedure and treatment not carried out due to patient leaving prior to being seen by health care provider (principal)
CPT/HCPCS: 36415; 71046; 80053; 84484; 85025; 93005; 93010

== ENCOUNTER 2021-11-21 11:20 | Inpatient (IN) | payer MEDICARE ==
[~2021-11-21] VITALS: Ht 157.5 cm; Wt 63.5 kg
[2021-11-21 12:45] LABS: BASOPHILS ABSOLUTE AUTO 0.05 K/mm3 (0.00-0.23); BASOPHILS PERCENT AUTO 1 % (0-2); EOSINOPHILS ABSOLUTE AUTO 0.14 K/mm3 (0.00-0.68); EOSINOPHILS PERCENT AUTO 3 % (0-6); Hematocrit 39.4 % (33.0-51.0); Hemoglobin 12.7 g/dL (11.5-16.0); Mean Corpuscular HGB 28.7 pg (26.0-34.0); Mean Corpuscular HGB Conc 32.2 g/dL (31.5-36.5); Mean Corpuscular Volume 89 fL (80-100); Mean Platelet Volume 9.4 fL (9.1-12.4); Platelet Count 149 K/mm3 (150-400); RDW Coefficient Variation 14.2 % (11.7-14.2); RDW Standard Deviation 46.5 fL (35.1-46.3); Red Blood Cell Count 4.42 M/mm3 (3.80-5.20); White Blood Cell Count 4.68 K/mm3 (4.00-11.30)
[2021-11-21 12:46] LABS: IMMATURE GRAN ABSOLUTE AUTO 0.02 K/mm3 (0.00-0.10); IMMATURE GRAN PERCENT AUTO 0 % (0-1); LYMPHOCYTES ABSOLUTE AUTO 1.52 K/mm3 (0.84-5.20); LYMPHOCYTES PERCENT AUTO 33 % (21-46); MONOCYTES ABSOLUTE AUTO 0.67 K/mm3 (0.16-1.47); MONOCYTES PERCENT AUTO 14 % (4-13); NEUTROPHILS ABSOLUTE AUTO 2.28 K/mm3 (1.96-9.15); NEUTROPHILS PERCENT AUTO 49 % (41-73)
[2021-11-21 13:07] LABS: Albumin/Globulin Ratio 0.7 (0.8-1.8); Bilirubin, Total 0.5 mg/dL (0.1-1.0); Calcium, Blood 9.3 mg/dL (8.5-10.1); Globulin, Blood 4.1 g/dL (2.2-4.0); Potassium, Blood 4.4 mmol/L (3.5-5.5); Total Protein, Blood 7.1 g/dL (6.4-8.2)
[2021-11-21 17:22] LABS: Source, Urine Clean Catch
[2021-11-21 17:33] LABS: Appearance, Urine Hazy (Clear); Bilirubin, Urine Neg (Neg); Blood, Urine 4+ (Neg); Color, Urine Yellow (P-Yellow); Glucose Qualitative, Urine Neg (Neg); Ketones, Urine Neg (Neg); Leukocyte Esterase, Urine 3+ (Neg); Nitrite, Urine Neg (Neg); Protein, Urine Neg (Neg); Urobilinogen, Urine NORM (Normal)
[2021-11-21 17:47] LABS: Bacteria Many /hpf; Squamous Epithelial Cells Mod /hpf (Few); White Blood Cells, Urine 25-50 /hpf (0-5)
[2021-11-21 18:22] LABS: Influenza A, PCR NEGATIVE (NEGATIVE); Influenza B, PCR NEGATIVE (NEGATIVE); Resp Syncytial Virus, PCR NEGATIVE (NEGATIVE); SARS-Cov-2 (COVID-19) PCR, MMC NEGATIVE (NEGATIVE)
[2021-11-21 23:01] LABS: International Normalized Ratio 2.15; Prothrombin Time Results 21.5 Sec (9.7-11.5)
[2021-11-22 05:20] LABS: BASOPHILS ABSOLUTE AUTO 0.01 K/mm3 (0.00-0.23); BASOPHILS PERCENT AUTO 0 % (0-2); EOSINOPHILS PERCENT AUTO 0 % (0-6); Hemoglobin 12.3 g/dL (11.5-16.0); Mean Corpuscular HGB Conc 32.4 g/dL (31.5-36.5); Mean Corpuscular Volume 90 fL (80-100); Mean Platelet Volume 9.3 fL (9.1-12.4); Platelet Count 148 K/mm3 (150-400); RDW Coefficient Variation 13.8 % (11.7-14.2); RDW Standard Deviation 45.3 fL (35.1-46.3); Red Blood Cell Count 4.24 M/mm3 (3.80-5.20); White Blood Cell Count 3.62 K/mm3 (4.00-11.30)
[2021-11-22 05:36] LABS: IMMATURE GRAN ABSOLUTE AUTO 0.02 K/mm3 (0.00-0.10); IMMATURE GRAN PERCENT AUTO 1 % (0-1); LYMPHOCYTES ABSOLUTE AUTO 1.06 K/mm3 (0.84-5.20); LYMPHOCYTES PERCENT AUTO 29 % (21-46); MONOCYTES PERCENT AUTO 3 % (4-13); NEUTROPHILS ABSOLUTE AUTO 2.43 K/mm3 (1.96-9.15); NEUTROPHILS PERCENT AUTO 67 % (41-73)
[2021-11-22 05:42] LABS: Bun/Creatinine Ratio 22.8 (12.0-20.0); Calcium, Blood 9.1 mg/dL (8.5-10.1); Creatinine, Blood 0.88 mg/dL (0.40-1.00); Potassium, Blood 4.6 mmol/L (3.5-5.5)
--- NOTE | 2021-11-22 05:52 | NUR ---
Patient admitted for UTI/Constipation, and worsening SOB on excertion. Patient SOB when ambulating from BSC to bed. Afebrile, saturations stable on 4L/oxygen NC. Pharamcy to dose Warfarin, pt did not take todays pill & dose given at 2300. Patient slept comfortably during the night, will continue to monitor.
[2021-11-22 11:04] LABS: International Normalized Ratio 2.63; Prothrombin Time Results 25.9 Sec (9.7-11.5)
--- NOTE | 2021-11-22 15:08 | NUR ---
MS GALVAN IS FORGETFUL. SHE GOT CONFUSED THIS MORNING WHETHER HER NAME IS HER CURRENT NAME OR HER OLD NAME THIS MORNING, ALSO GOT CONFUSED ABOUT THE YEAR AND SEASON, THOUGH SHE WAS ABLE TO COME TO THE ANSWER. INCONTINENT OF A SMALL STOOL THIS MORNING. WHITE CATHETER REMOVED AROUND 1300HRS, HAS NOT VOIDED YET BUT DOES DESCRIBE PERINEAL DISCOMFORT. HAS TRIED VOIDING, UP TO BSC. WORKING WITH RT AND PT TODAY. WALKING IN HALLS WITH PT NOW. BED LOW, CALL LIGHT IN REACH, BED ALARM ON.
--- NOTE | 2021-11-22 16:52 | NUR ---
SHIFT SUMMARY PLEASE SEE PRIOR RN NOTE. PT TRANSFERED BACK TO BED WITH 1 PERSON ASSIST, WEAK AND WOBBLY WHEN TRANSFERING. TURNING WELL TO KEEP OFF OF SACRAL AREA THAT IS TENDER. MEPILEX INTACT. NO FURTHER BM AFTER SMALL BM EARLY THIS SHIFT. RPT DOSE OF MOM GIVEN. FLUIDS ENCOURAGED. NO VOID SINCE WHITE REMOVED AT 1300HRS, PERINEAL DISCOMFORT HAS REDUCED PER PT. SON AT BEDSIDE. BED LOW, CALL LIGHT IN REACH, BED ALARM ON.
[2021-11-23 05:14] LABS: International Normalized Ratio 3.46; Prothrombin Time Results 33.5 Sec (9.7-11.5)
--- NOTE | 2021-11-23 06:33 | NUR ---
NIGHTSHIFT SUMMARY Patient unable to void this evening, Almanzar DC'd at 1300, patient used BSC & unable to void. PVR 275mL, notified MD, order to place new Almanzar. Placed almanzar with immediate urine output. Patient had difficulty sleeping during the night. 3am BP was 88/48, notified MD and verbal order for LR 500mL bolus. Rechecked and BP 98/58, infused remaining 500mL of LR. Patient asymptomatic, resting comfortably in bed. Almanzar draining to gravity. No BM this shift, bowel meds given at HS.
[2021-11-23 07:55] LABS: BASOPHILS ABSOLUTE AUTO 0.05 K/mm3 (0.00-0.23); BASOPHILS PERCENT AUTO 1 % (0-2); EOSINOPHILS ABSOLUTE AUTO 0.14 K/mm3 (0.00-0.68); EOSINOPHILS PERCENT AUTO 2 % (0-6); Hematocrit 33.8 % (33.0-51.0); Hemoglobin 10.6 g/dL (11.5-16.0); IMMATURE GRAN ABSOLUTE AUTO 0.02 K/mm3 (0.00-0.10); IMMATURE GRAN PERCENT AUTO 0 % (0-1); LYMPHOCYTES ABSOLUTE AUTO 1.84 K/mm3 (0.84-5.20); LYMPHOCYTES PERCENT AUTO 32 % (21-46); MONOCYTES ABSOLUTE AUTO 0.76 K/mm3 (0.16-1.47); MONOCYTES PERCENT AUTO 13 % (4-13); Mean Corpuscular HGB 28.3 pg (26.0-34.0); Mean Corpuscular HGB Conc 31.4 g/dL (31.5-36.5); Mean Corpuscular Volume 90 fL (80-100); Mean Platelet Volume 9.3 fL (9.1-12.4); NEUTROPHILS ABSOLUTE AUTO 3.04 K/mm3 (1.96-9.15); NEUTROPHILS PERCENT AUTO 52 % (41-73); Platelet Count 161 K/mm3 (150-400); RDW Coefficient Variation 14.1 % (11.7-14.2); RDW Standard Deviation 46.6 fL (35.1-46.3); Red Blood Cell Count 3.75 M/mm3 (3.80-5.20); White Blood Cell Count 5.85 K/mm3 (4.00-11.30)
[2021-11-23 08:17] LABS: Albumin, Blood 2.4 g/dL (3.4-5.0); Anion Gap 2 mmol/L (6-16); Blood Urea Nitrogen 26 mg/dL (8-24); Bun/Creatinine Ratio 24.3 (12.0-20.0); CO2, Blood 37 mmol/L (21-32); Calcium, Blood 8.5 mg/dL (8.5-10.1); Chloride, Blood 99 mmol/L (98-108); Creatinine, Blood 1.07 mg/dL (0.40-1.00); Glomerular Filtration Rate 51 (60-); Glucose, Blood 100 mg/dL (70-99); Phosphorus, Blood 2.7 mg/dL (2.5-4.9); Potassium, Blood 4.3 mmol/L (3.5-5.5); Sodium, Blood 138 mmol/L (136-145)
--- NOTE | 2021-11-23 08:20 | NUR ---
CALLED DR ROBERT PT HAS INDWELLING WHITE CATHETER IN PLACE (PLACED OVERNIGHT). DR ROBERT WOULD LIKE WHITE TO STAY IN FOR NOW AND START BLADDER TRAINING. REPORTED NO BM SINCE SMALL BM YESTERDAY AM. DR ROBERT SAID I CAN PUT IN AN ORDER FOR DUCOLOX 10MG NM SUPPOSITORY IF SHE DOES NOT HAVE A BM BY 11AM TODAY.
--- NOTE | 2021-11-23 13:09 | NUR ---
WHITE WAS CLAMPED FOR BLADDER TRAINING AT 0915. AT 1200 SHE SAID THAT SHE DID NOT FEEL THE NEED TO VOID. AT 1305 WHEN ASKED SHE SAID THAT SHE DID FEEL THE NEED TO VOID. WHITE UNCLAMPED AT THIS TIME, DRAINING CLEAR YELLOW URINE. PLAN TO REPEAT. LARGE BM THIS MORNING. ORTHOSTATIC BPS DONE AND RECORDED. PT WAS TIRED AND SAID SHE DID FEEL LIGHTHEADED STANDING UP AT THAT TIME. SHE HAD BEEN UP TO THE COMMODE SEVERAL TIMES THIS MORNING AND SAID SHE FELT "EXHAUSTED". FAMILY AT BEDSIDE THIS MORNING. PT ORIENTATED TO SELF, PLACE AND DATE, BUT DOES SEEM A LITTLE CONFUSED WITH SOME OF HER CONVERSATION AT TIMES. BED LOW, CALL LIGHT IN REACH, BED ALARM ON.
--- NOTE | 2021-11-23 16:54 | NUR ---
SHIFT SUMMARY PLEASE SEE EARLIER NOTE. CHRISTOPHER CLAMPED AGAIN AT 1440. ASKED AT 1655 IF SHE NEEDS TO VOID AND SHE HAS NO FEELINGS OF NEEDING TO VOID. ORIENTATED TO QUESTIONS APPROPRIATELY BUT SOME EPISODES OF CONFUSION/FORGETFULNESS AT TIMES. INCONT OF LARGE STOOL THIS MORNING BUT COULD FEEL THAT SHE WAS HAVING STOOL AFTER SHE HAD STARTED. WORKED WITH PT TODAY, BUT SAID SHE WAS TOO TIRED TO AMBULATE. BED LOW, CALL LIGHT IN REACH, BED ALARM ON
[2021-11-23 17:43] LABS: Hematocrit 34.9 % (33.0-51.0); Hemoglobin 11.1 g/dL (11.5-16.0)
--- NOTE | 2021-11-23 18:44 | NUR ---
AT 1840, 4 HOURS AFTER WHITE CATHETER WAS CLAMPED MS GALVAN SAID SHE THOUGHT SHE NEEDED TO DO "SOMETHING" "MAYBE POOP" BUT SHE WASN'T SURE. WHITE CATHETER UNCLAMPED AT THIS TIME.
[2021-11-23 22:59] LABS: Hematocrit 33.4 % (33.0-51.0); Hemoglobin 10.7 g/dL (11.5-16.0)
[2021-11-24 06:27] LABS: Albumin, Blood 2.5 g/dL (3.4-5.0); Anion Gap 3 mmol/L (6-16); Blood Urea Nitrogen 22 mg/dL (8-24); Bun/Creatinine Ratio 22.1 (12.0-20.0); CO2, Blood 36 mmol/L (21-32); Calcium, Blood 8.5 mg/dL (8.5-10.1); Chloride, Blood 100 mmol/L (98-108); Creatinine, Blood 0.99 mg/dL (0.40-1.00); Glomerular Filtration Rate 56 (60-); Glucose, Blood 103 mg/dL (70-99); Potassium, Blood 4.3 mmol/L (3.5-5.5); Sodium, Blood 139 mmol/L (136-145)
[2021-11-24 06:52] LABS: International Normalized Ratio 3.17; Prothrombin Time Results 30.9 Sec (9.7-11.5)
--- NOTE | 2021-11-24 07:28 | NUR ---
SHIFT SUMMARY: PATIENT IS A&OX3, VSS. PATIENT WAS UP MULTIPLE TIMES TO THE BSC WITH NO RESULT. CHRISTOPHER IS PATENT FOR A CLEAR BRIGHT YELLOW URINE. NO ACUTE CHAGES THIS SHIFT.
--- NOTE | 2021-11-24 11:20 | NUR ---
AM NOTE MS GALVAN IS ORIENTATED TO QUESTIONS, SOMETIMES FORGETFUL IN HER ANSWERS. CONTINUES ON BLADDER TRAINING. WHITE CLAMPED AT 0925 AND SHE HAS NOT FELT THE NEED TO VOID YET. C/O TENDERNESS TO HER BUTOCKS. MEPILEX CHANGED, IT IS RED MORE ON HER R BUTTOCK WITH A SMALL SCRATCHED AREA. REPOSITIONED AND SITTING IN CHAIR ON A DONUT WHICH SHE SAID IS HELPFUL. BED AND CHAIR ALARMS IN USE.
--- NOTE | 2021-11-24 13:55 | NUR ---
WHITE CATHETER WAS CLAMPED FOR 4 HRS. AT THIS TIME MS GALVAN SAID SHE FELT LIKE SHE NEEDED TO USE THE COMMODE, BUT COULDN'T TELL IF SHE NEEDED TO VOID OR HAVE BM. SHE SAT ON BSC, NO BM, WHITE WAS RELEASED AND SHE SAID SHE FELT RELIEF. REPORTED TO DR ROBERT. DR ROBERT REQUESTED WHITE REMOVAL WHICH WAS DONE AT 1350HRS.
--- NOTE | 2021-11-24 16:16 | NUR ---
SHIFT SUMMARY MS GALVAN HAD WHITE REMOVED AT 1350HRS AFTER BLADDER TRAINING DESCRIBED IN PRIOR NOTES. PO FLUIDS ENCOURAGED AND HER SON IS AT BEDSIDE ENCOURAGING FLUIDS. NO VOID YET. NO BM TODAY. UP TO CHAIR WITH 1 PERSON ASSISTANCE. NO C/O SOB TODAY ON 3L NC. RT AND PT CARE TODAY. BED LOW, CALL LIGHT IN REACH, BED ALARM ON.
--- NOTE | 2021-11-24 19:08 | NUR ---
ATTEMPTED TO VOID ON BSC X2, UNSUCCESSFUL SO FAR. BLADDER SCAN 512CC 5 HOURS AFTER WHITE REMOVAL. PT CONTINUES TO BE ENCOURAGED TO DRINK FLUIDS.
[2021-11-25 05:53] LABS: International Normalized Ratio 1.91; Prothrombin Time Results 19.2 Sec (9.7-11.5)
--- NOTE | 2021-11-25 06:42 | NUR ---
SHIFT SUMMARY: PATIENT IS NOT ABLE TO EMPTY HER BLADDER WHEN BLADDER SCAN FOR 567MLS. WAS ASSISTED TO [facility] BUT ONLY VOIDED 50 MLS. PATIENT REQUESTED NO STRAIGHT CATH BECAUSE SHE HAS NO URGE TO VOID AND ABD. PATIENT CONTINUES TO BE INC. OF A SMALL AMOUNT OF URINE X2. BLADDER SCANNED AFTER ANOTHER ATTEMP AT [facility] @ 0984 ESUKT IS 657ML PVR. STAIGHT CATHED FOR 575MLS. TOLERERATED PROCEEDURE FAIR. TYLENOL AND WRAM BLANKET GRUPO GIVEN FOR DISCOMFORT.POST PROCEEDURE.
[2021-11-25] MEDS ORDERED: DULCOLAX400 MG/5 M PO (14:42)
[2021-11-25] MEDS ORDERED: MICO100S TOP (14:42)
[2021-11-25] MEDS ORDERED: SENN187 PO (14:42)
[2021-11-25] MEDS ORDERED: VISBIOME 112.51 EACH PO (14:43)
[2021-11-25] MEDS ORDERED: TAMS.4ER PO (14:43)
[2021-11-25] MEDS ORDERED: CEFP200 PO (14:43)
[2021-11-25] MEDS ORDERED: MIRALAX17 GM PO (14:43)
== END 2021-11-25 15:35 | disposition home health service (06) | DRG 189 ==
LOC: ER 11:20 → MEDS 11:21
PROVIDERS: Internal Medicine; Student in an Organized Health Care Education/Training Program; ADMIT Family Medicine
DX: J96.21 Acute and chronic respiratory failure with hypoxia (principal); N39.0 Urinary tract infection, site not specified; E87.1 Hypo-osmolality and hyponatremia; J43.9 Emphysema, unspecified; Z66 Do not resuscitate; Z20.822 Contact with and (suspected) exposure to COVID-19; I73.9 Peripheral vascular disease, unspecified; K59.00 Constipation, unspecified; D69.6 Thrombocytopenia, unspecified; D63.8 Anemia in other chronic diseases classified elsewhere; I10 Essential (primary) hypertension; E78.5 Hyperlipidemia, unspecified; B96.20 Unspecified Escherichia coli [E. coli] as the cause of diseases classified elsewhere; B95.4 Other streptococcus as the cause of diseases classified elsewhere; Z99.81 Dependence on supplemental oxygen; Z86.711 Personal history of pulmonary embolism; Z86.718 Personal history of other venous thrombosis and embolism; Z90.49 Acquired absence of other specified parts of digestive tract; Z98.890 Other specified postprocedural states; Z87.891 Personal history of nicotine dependence; Z88.0 Allergy status to penicillin; Z88.5 Allergy status to narcotic agent; Z88.1 Allergy status to other antibiotic agents; Z88.8 Allergy status to other drugs, medicaments and biological substances; Z91.041 Radiographic dye allergy status; Z79.01 Long term (current) use of anticoagulants; Z79.899 Other long term (current) drug therapy
CPT/HCPCS: 0241U; 36415; 51702; 51798; 71046; 74018; 74176; 80048; 80053; 80069; 81001; 85014; 85018; 85025; 85610; 87077; 87086; 87186; 93005; 93010; 94640; 94644; 94664; 94667; 94760; 96361; 96374-59; 96375; 96376; 97110; 97112; 97116; 97162; 97530; 98960; 99285-25; A9270; G0378; J0696; J2405; J7120; J7512; P9612

== ENCOUNTER 2021-11-28 21:26 | Emergency (ER) | payer MEDICARE ==
[~2021-11-28] VITALS: Ht 157.5 cm; Wt 63.5 kg
[~2021-11-28 21:26] MED LIST changes: +DULCOLAX400 MG/5 M PO; +MICO100S TOP; +MIRALAX17 GM PO; +SENN187 PO; +TAMS.4ER PO; +VISBIOME 112.51 EACH PO
[2021-11-29 00:10] LABS: Source, Urine Foley catheter
[2021-11-29 00:36] LABS: Appearance, Urine Clear (Clear); Bilirubin, Urine Neg (Neg); Blood, Urine Neg (Neg); Color, Urine Yellow (P-Yellow); Glucose Qualitative, Urine Neg (Neg); Ketones, Urine Neg (Neg); Leukocyte Esterase, Urine Neg (Neg); Nitrite, Urine Neg (Neg); Protein, Urine Neg (Neg); Urobilinogen, Urine NORM (Normal)
[2021-11-29 00:46] LABS: BASOPHILS ABSOLUTE AUTO 0.05 K/mm3 (0.00-0.23); BASOPHILS PERCENT AUTO 1 % (0-2); EOSINOPHILS ABSOLUTE AUTO 0.43 K/mm3 (0.00-0.68); EOSINOPHILS PERCENT AUTO 6 % (0-6); Hematocrit 32.6 % (33.0-51.0); Hemoglobin 10.5 g/dL (11.5-16.0); IMMATURE GRAN ABSOLUTE AUTO 0.08 K/mm3 (0.00-0.10); IMMATURE GRAN PERCENT AUTO 1 % (0-1); LYMPHOCYTES ABSOLUTE AUTO 2.14 K/mm3 (0.84-5.20); LYMPHOCYTES PERCENT AUTO 29 % (21-46); MONOCYTES ABSOLUTE AUTO 0.79 K/mm3 (0.16-1.47); MONOCYTES PERCENT AUTO 11 % (4-13); Mean Corpuscular HGB 28.8 pg (26.0-34.0); Mean Corpuscular HGB Conc 32.2 g/dL (31.5-36.5); Mean Corpuscular Volume 90 fL (80-100); Mean Platelet Volume 8.7 fL (9.1-12.4); NEUTROPHILS ABSOLUTE AUTO 3.94 K/mm3 (1.96-9.15); NEUTROPHILS PERCENT AUTO 53 % (41-73); Platelet Count 255 K/mm3 (150-400); RDW Coefficient Variation 13.7 % (11.7-14.2); RDW Standard Deviation 44.9 fL (35.1-46.3); Red Blood Cell Count 3.64 M/mm3 (3.80-5.20); White Blood Cell Count 7.43 K/mm3 (4.00-11.30)
[2021-11-29 01:00] LABS: International Normalized Ratio 1.26
[2021-11-29 01:11] LABS: Bun/Creatinine Ratio 16.2 (12.0-20.0); Creatinine, Blood 0.99 mg/dL (0.40-1.00); Potassium, Blood 4.1 mmol/L (3.5-5.5)
== END 2021-11-29 01:30 | disposition home or self-care (01) ==
LOC: ER 21:26
PROVIDERS: Emergency Medicine
DX: R33.9 Retention of urine, unspecified (principal); K59.00 Constipation, unspecified; R10.32 Left lower quadrant pain; J43.9 Emphysema, unspecified; I10 Essential (primary) hypertension; Z86.711 Personal history of pulmonary embolism; Z86.718 Personal history of other venous thrombosis and embolism; Z88.5 Allergy status to narcotic agent; Z88.0 Allergy status to penicillin; Z88.8 Allergy status to other drugs, medicaments and biological substances; Z88.1 Allergy status to other antibiotic agents; Z91.041 Radiographic dye allergy status; Z79.899 Other long term (current) drug therapy; Z79.01 Long term (current) use of anticoagulants
CPT/HCPCS: 36415; 51702; 51798; 74018; 80048; 81003; 85025; 85610; 99284-25

== ENCOUNTER → 2022-02-28 | Outpatient (CLI) | payer MEDICARE ==
[2022-02-28 13:28] LABS: International Normalized Ratio 1.9; Prothrombin Time Results 19.1 Sec (9.7-11.5)
== END | disposition home or self-care (01) ==
LOC: LAB SHORT 11:30 → LAB 11:30
PROVIDERS: Nurse Practitioner
DX: Z79.01 Long term (current) use of anticoagulants (principal); Z51.81 Encounter for therapeutic drug level monitoring; I10 Essential (primary) hypertension; Z86.718 Personal history of other venous thrombosis and embolism; Z86.711 Personal history of pulmonary embolism; Z90.81 Acquired absence of spleen; J44.9 Chronic obstructive pulmonary disease, unspecified
CPT/HCPCS: 85610

== ENCOUNTER 2022-12-31 15:01 | Emergency (ER) | payer OTHER ==
[~2022-12-31] VITALS: Ht 157.5 cm; Wt 62.6 kg
[2022-12-31 15:32] LABS: BASOPHILS ABSOLUTE AUTO 0.07 K/mm3 (0.00-0.23); BASOPHILS PERCENT AUTO 1 % (0-2); EOSINOPHILS ABSOLUTE AUTO 0.66 K/mm3 (0.00-0.68); EOSINOPHILS PERCENT AUTO 8 % (0-6); Hematocrit 38.8 % (33.0-51.0); Hemoglobin 12.3 g/dL (11.5-16.0); IMMATURE GRAN ABSOLUTE AUTO 0.03 K/mm3 (0.00-0.10); IMMATURE GRAN PERCENT AUTO 0 % (0-1); LYMPHOCYTES ABSOLUTE AUTO 2.37 K/mm3 (0.84-5.20); LYMPHOCYTES PERCENT AUTO 30 % (21-46); MONOCYTES ABSOLUTE AUTO 1.01 K/mm3 (0.16-1.47); MONOCYTES PERCENT AUTO 13 % (4-13); Mean Corpuscular HGB 28.7 pg (26.0-34.0); Mean Corpuscular HGB Conc 31.7 g/dL (31.5-36.5); Mean Corpuscular Volume 90 fL (80-100); Mean Platelet Volume 8.8 fL (9.1-12.4); NEUTROPHILS ABSOLUTE AUTO 3.68 K/mm3 (1.96-9.15); NEUTROPHILS PERCENT AUTO 47 % (41-73); Platelet Count 223 K/mm3 (150-400); RDW Coefficient Variation 14.8 % (11.7-14.2); Red Blood Cell Count 4.29 M/mm3 (3.80-5.20); White Blood Cell Count 7.82 K/mm3 (4.00-11.30)
[2022-12-31 15:55] LABS: International Normalized Ratio 2.15; Prothrombin Time Results 21.6 Sec (9.7-11.5)
[2022-12-31 16:02] LABS: Bun/Creatinine Ratio 22.2 (12.0-20.0); Creatinine, Blood 1.17 mg/dL (0.40-1.00); Potassium, Blood 4.6 mmol/L (3.5-5.5)
[2022-12-31 16:03] LABS: Albumin/Globulin Ratio 0.7 (0.8-1.8); Bilirubin, Total 0.2 mg/dL (0.1-1.0); Calcium, Blood 9.2 mg/dL (8.5-10.1); Globulin, Blood 4.6 g/dL (2.2-4.0); Total Protein, Blood 7.6 g/dL (6.4-8.2)
[2022-12-31] MEDS ORDERED: PRED20 PO ×2 (17:29)
[2022-12-31] MEDS ORDERED: DOXY100 PO ×2 (17:29)
[2022-12-31 18:05] VITALS: BP 139/67
== END 2022-12-31 18:40 | disposition home or self-care (01) ==
LOC: ER 15:01
PROVIDERS: Student in an Organized Health Care Education/Training Program
DX: J44.1 Chronic obstructive pulmonary disease with (acute) exacerbation (principal); J44.0 Chronic obstructive pulmonary disease with (acute) lower respiratory infection; J20.9 Acute bronchitis, unspecified; I10 Essential (primary) hypertension; E78.5 Hyperlipidemia, unspecified; I49.1 Atrial premature depolarization; Z99.81 Dependence on supplemental oxygen; Z20.822 Contact with and (suspected) exposure to COVID-19; Z88.0 Allergy status to penicillin; Z88.1 Allergy status to other antibiotic agents; Z88.5 Allergy status to narcotic agent; Z88.8 Allergy status to other drugs, medicaments and biological substances; Z91.041 Radiographic dye allergy status; Z79.01 Long term (current) use of anticoagulants; Z79.899 Other long term (current) drug therapy; Z79.2 Long term (current) use of antibiotics
CPT/HCPCS: 71046; 80053; 84484; 85025; 85610; 93005; 93010; 94640; 94664; 96361; 96374; 99285-25; A9270; J3475; J7030; J7512

== ENCOUNTER → 2023-04-29 | Outpatient (CLI) | payer OTHER ==
[2023-04-29 11:38] LABS: Source, Urine Clean Catch
[2023-04-29 12:30] LABS: Appearance, Urine Hazy (Clear); Bilirubin, Urine Neg (Neg); Blood, Urine 4+ (Neg); Color, Urine Yellow (P-Yellow); Glucose Qualitative, Urine Neg (Neg); Ketones, Urine Neg (Neg); Leukocyte Esterase, Urine 3+ (Neg); Nitrite, Urine Pos (Neg); Protein, Urine 2+ (Neg); Specific Gravity, Urine 1.015 (1.003-1.022); Urobilinogen, Urine NORM (Normal)
[2023-04-29 12:43] LABS: Bacteria Many /hpf; Squamous Epithelial Cells Not Seen /hpf (Few); White Blood Cells, Urine 50-100 /hpf (0-5)
== END | disposition home or self-care (01) ==
LOC: LAB SHORT 11:35 → LAB 11:35 → LAB FUT 11-21 16:25
PROVIDERS: Physician Assistant Medical
DX: N39.0 Urinary tract infection, site not specified (principal)
CPT/HCPCS: 81001; 87077; 87086; 87186

== ENCOUNTER 2023-07-07 20:53 | Emergency (ER) | payer OTHER ==
[~2023-07-07] VITALS: Ht 162.6 cm; Wt 62.6 kg
[~2023-07-07 20:53] MED LIST changes: +Estrace Vagin42.5 GM VAG
[2023-07-07] MEDS ORDERED: Tranexamic Acid 1000 MG/10 ML 10ML Vial (SDV) TOP ONE (21:05)
[2023-07-07] MEDS ORDERED: Ondansetron HCl 2 MG / ML 2ML Vial IV ONE (21:45)
[2023-07-07 22:30] LABS: Hematocrit 29.4 % (33.0-51.0); Hemoglobin 9.1 g/dL (11.5-16.0); Mean Corpuscular HGB 28.1 pg (26.0-34.0); Mean Corpuscular Volume 91 fL (80-100); Mean Platelet Volume 8.6 fL (9.1-12.4); Platelet Count 331 K/mm3 (150-400); RDW Coefficient Variation 15.5 % (11.7-14.2); RDW Standard Deviation 51.2 fL (35.1-46.3); Red Blood Cell Count 3.24 M/mm3 (3.80-5.20); White Blood Cell Count 6.99 K/mm3 (4.00-11.30)
[2023-07-07 22:53] LABS: International Normalized Ratio 3.32; Prothrombin Time Results 32.6 Sec (9.7-11.5)
[2023-07-07 23:30] VITALS: BP 179/99
[2023-07-07] MEDS ORDERED: CEPH500 PO (23:39)
[2023-07-07] MEDS ORDERED: Cephalexin Monohydrate 500 MG Cap PO ONE (23:40)
== END 2023-07-07 23:59 | disposition home or self-care (01) ==
LOC: ER 20:53
PROVIDERS: Student in an Organized Health Care Education/Training Program
DX: R04.0 Epistaxis (principal); T45.515A Adverse effect of anticoagulants, initial encounter; R79.1 Abnormal coagulation profile; I73.9 Peripheral vascular disease, unspecified; J43.9 Emphysema, unspecified; Z99.81 Dependence on supplemental oxygen; I10 Essential (primary) hypertension; E78.5 Hyperlipidemia, unspecified; Z87.891 Personal history of nicotine dependence; Z86.718 Personal history of other venous thrombosis and embolism; Z86.711 Personal history of pulmonary embolism; Z91.041 Radiographic dye allergy status; Z88.0 Allergy status to penicillin; Z88.5 Allergy status to narcotic agent; Z88.8 Allergy status to other drugs, medicaments and biological substances; Z88.1 Allergy status to other antibiotic agents; Z79.01 Long term (current) use of anticoagulants; Z79.899 Other long term (current) drug therapy; Z79.890 Hormone replacement therapy; Z79.82 Long term (current) use of aspirin
CPT/HCPCS: 30905; 85027; 85610; 99283-25; A9270; J2405

== ENCOUNTER → 2024-04-26 | Outpatient (CLI) | payer OTHER ==
[2024-04-26 13:53] LABS: Appearance, Urine Turbid (Clear); Bilirubin, Urine Neg (Neg); Blood, Urine 4+ (Neg); Color, Urine Yellow (P-Yellow); Glucose Qualitative, Urine Neg (Neg); Ketones, Urine Neg (Neg); Leukocyte Esterase, Urine 3+ (Neg); Nitrite, Urine Pos (Neg); Protein, Urine 3+ (Neg); Specific Gravity, Urine 1.015 (1.003-1.022); Urobilinogen, Urine NORM (Normal)
[2024-04-26 14:10] LABS: Bacteria Many /hpf; Squamous Epithelial Cells Mod /hpf (Few); White Blood Cells, Urine 50-100 /hpf (0-5)
== END ==
LOC: LAB SHORT 12:53 → LAB 12:53 → EDSTATUS 04-26 11:10 → LAB FUT 04-26 11:10
PROVIDERS: Physician Assistant Medical
DX: N39.0 Urinary tract infection, site not specified (principal)
CPT/HCPCS: 81001; 87077; 87086; 87186

== ENCOUNTER → 2024-05-27 | Outpatient (CLI) | payer OTHER ==
[2024-05-27 10:29] LABS: Source, Urine Voided
[2024-05-27 11:59] LABS: Appearance, Urine Cloudy (Clear); Bilirubin, Urine Neg (Neg); Blood, Urine 4+ (Neg); Color, Urine Yellow (P-Yellow); Glucose Qualitative, Urine Neg (Neg); Ketones, Urine 1+ (Neg); Leukocyte Esterase, Urine 3+ (Neg); Nitrite, Urine Pos (Neg); Protein, Urine 3+ (Neg); Specific Gravity, Urine 1.015 (1.003-1.022); Urobilinogen, Urine NORM (Normal)
[2024-05-27 12:07] LABS: White Blood Cells, Urine 50-100 /hpf (0-5)
[2024-05-27 12:08] LABS: Bacteria Many /hpf; Red Blood Cells, Urine 25-50 /hpf (0-2); Squamous Epithelial Cells Few /hpf (Few)
== END | disposition home or self-care (01) ==
LOC: LAB SHORT 10:27 → LAB 10:27
PROVIDERS: Physician Assistant
DX: N39.0 Urinary tract infection, site not specified (principal)
CPT/HCPCS: 81001; 87086

== ENCOUNTER 2024-06-05 11:35 | Inpatient (IN) | payer OTHER ==
[~2024-06-05] VITALS: Ht 154.9 cm; Wt 58.2 kg
[2024-06-05] MEDS ORDERED: MethylPREDNISolone Sod Succ 125 MG Vial IV ONE (11:50)
[2024-06-05] MEDS ORDERED: Ipratropium Bromide INH 0.02% 0.5 mg/2.5ML Vial INH SCH (11:50)
[2024-06-05] MEDS ORDERED: Mag Sulfate 1 GM/D5% 100ML 100 ML IV ONE (11:50)
[2024-06-05] MEDS ORDERED: Albuterol 2.5 MG/3 ML VIAL INH ONE (12:15)
[2024-06-05 12:24] LABS: BASOPHILS ABSOLUTE AUTO 0.11 K/mm3 (0.00-0.23); BASOPHILS PERCENT AUTO 0 % (0-2); EOSINOPHILS ABSOLUTE AUTO 0.02 K/mm3 (0.00-0.68); EOSINOPHILS PERCENT AUTO 0 % (0-6); Hematocrit 36.7 % (33.0-51.0); Hemoglobin 11.7 g/dL (11.5-16.0); IMMATURE GRAN PERCENT AUTO 3 % (0-1); LYMPHOCYTES ABSOLUTE AUTO 2.51 K/mm3 (0.84-5.20); LYMPHOCYTES PERCENT AUTO 8 % (21-46); MONOCYTES ABSOLUTE AUTO 1.15 K/mm3 (0.16-1.47); MONOCYTES PERCENT AUTO 4 % (4-13); Mean Corpuscular HGB 28.7 pg (26.0-34.0); Mean Corpuscular HGB Conc 31.9 g/dL (31.5-36.5); Mean Corpuscular Volume 90 fL (80-100); Mean Platelet Volume 8.1 fL (9.1-12.4); NEUTROPHILS ABSOLUTE AUTO 25.44 K/mm3 (1.96-9.15); NEUTROPHILS PERCENT AUTO 85 % (41-73); Platelet Count 241 K/mm3 (150-400); RDW Coefficient Variation 14.7 % (11.7-14.2); RDW Standard Deviation 49.1 fL (35.1-46.3); Red Blood Cell Count 4.07 M/mm3 (3.80-5.20); White Blood Cell Count 30.03 K/mm3 (4.00-11.30)
[2024-06-05 12:37] LABS: Base Excess Venous 2.4 mmol/L; Bicarbonate Venous 25.3 mmol/L (24.0-30.0); PCO2 Venous 57.7 mmHg (38-42); pH Blood Venous 7.31 (7.34-7.37)
[2024-06-05 12:45] LABS: Calcium, Blood 9.7 mg/dL (8.5-10.1); Creatinine, Blood 1.08 mg/dL (0.40-1.00)
[2024-06-05 12:47] LABS: International Normalized Ratio 1.23
[2024-06-05] MEDS ORDERED: Ondansetron HCl 2 MG / ML 2ML Vial IV ONE ×2 (13:25→16:30)
[2024-06-05] MEDS ORDERED: Morphine Sulfate 4 MG/1 ML Injection IV ONE ×2 (13:25→16:30)
[2024-06-05] MEDS ORDERED: CefTRIAXone Sodium 1,000 MG in NS 100 ML IV ONE (13:35)
[2024-06-05] MEDS ORDERED: Albuterol 2.5 MG/3 ML VIAL INH SCH (13:55)
[2024-06-05 14:26] LABS: Influenza A, PCR NEGATIVE (NEGATIVE); Influenza B, PCR NEGATIVE (NEGATIVE); Resp Syncytial Virus, PCR NEGATIVE (NEGATIVE); SARS-Cov-2 (COVID-19) PCR, MMC NEGATIVE (NEGATIVE)
[2024-06-05] MEDS ORDERED: NS 1,000 ML IV SCH (15:25)
[2024-06-05] MEDS ORDERED: Ipratropium/Albuterol SulF 2.5-0.5MG/3 ML Amp INH SCH (15:25)
[2024-06-05] MEDS ORDERED: FLU VACC TS2024-25(6MOS UP)/PF 45 MCG/0.5 ML SYRINGE IM SCH (15:25)
[2024-06-05] MEDS ORDERED: Benzonatate 100 MG Cap PO PRN (15:30)
[2024-06-05] MEDS ORDERED: MethylPREDNISolone Sod Succ 125 MG Vial IV SCH (16:00)
[2024-06-05 16:37] LABS: Base Excess Venous -1.9 mmol/L; Bicarbonate Venous 22.7 mmol/L (24.0-30.0); pH Blood Venous 7.33 (7.34-7.37)
[2024-06-05] MEDS ORDERED: Albuterol 2.5 MG/3 ML VIAL INH PRN (17:55)
[2024-06-05 17:57] LABS: Adenovirus Not Detected (NOT DETECT); Bordetella pertussis Not Detected (NOT DETECT); Chlamydophila pneumoniae Not Detected (NOT DETECT); Coronavirus 229E Not Detected (NOT DETECT); Coronavirus HKU1 Not Detected (NOT DETECT); Coronavirus NL63 Not Detected (NOT DETECT); Coronavirus OC43 Not Detected (NOT DETECT); Human Metapneumovirus Not Detected (NOT DETECT); Human Rhinovirus/Enterovirus Not Detected (NOT DETECT); Influenza A/2009-H1 Not Detected (NOT DETECT); Influenza A/H1 Not Detected (NOT DETECT); Influenza A/H3 Not Detected (NOT DETECT); Influenza B Not Detected (NOT DETECT); Mycoplasma pneumoniae Not Detected (NOT DETECT); Parainfluenza Virus 1 Not Detected (NOT DETECT); Parainfluenza Virus 2 Not Detected (NOT DETECT); Parainfluenza Virus 3 Not Detected (NOT DETECT); Parainfluenza Virus 4 Not Detected (NOT DETECT); Respiratory Syncytial Virus Not Detected (NOT DETECT); SARS-Cov-2 (COVID-19), BioFire Not Detected (NOT DETECT)
[2024-06-05 18:00] VITALS: BP 127/58
[2024-06-05] MEDS ORDERED: YUPELRI175 MCG/1 INH (18:57)
[2024-06-05] MEDS ORDERED: CENTRUM SILVER1 EAC2 PO (19:01)
[2024-06-05] MEDS ORDERED: FISH OIL 1,0001 EA10 PO (19:02)
[2024-06-05] MEDS ORDERED: B-COMPLEX WITH1 EAC2 PO (19:02)
[2024-06-05] MEDS ORDERED: C COMPLEX1000 M1 PO (19:02)
[2024-06-05] MEDS ORDERED: EQUALACTIN PO (19:03)
[2024-06-05] MEDS ORDERED: CEPH500 PO (19:04)
[2024-06-05] MEDS ORDERED: ELIQUIS5 M2 PO (19:05)
[2024-06-05] MEDS ORDERED: FERSU300 PO (19:06)
[2024-06-05] MEDS ORDERED: CRANBERRY VIT PO (19:07)
[2024-06-05] MEDS ORDERED: BUDESONIDE0.5 MG/2 M INH (19:14)
--- NOTE | 2024-06-05 19:29 | NUR ---
PATIENT ASSUMPTION FROM ED. PATIENT IS ALERT AND ORIENTED X 2-3, 3-4. PATIENT HAS BEEN COOPERATIVE PLEASANT, DENIES CHETS PAIN PRESSURE OR SOB. IV FLUSHED, BLOOD RETURN NOTED. CHANGED INTO BRIED AND HOSPITAL ATTIRE. TELE AND CONTIUOUS PULSE OXIMETRY PLACED. SPOKE WITH SON AND PATIENT ABOUT CODE STATUS STILL DESIRES TO BE DNR. UNDERWRITING CONSULTANT AWARE, CRITICAL LACTIC 4.8 NO CHANGE FROM PREVIOUS, NIGHT UNDERWRITING CONSULTANT AWARE NS AT 100 STARTED, PATIENT HAD EXTREME DIFFICULTY WITH EATING THE CURRENLTY ORDERED, DAY UNDERWRITING CONSULTANT AWARE AND CHANGED. MED REC COMPLETED TO BEST ABILITY DISCREPENCIES RELAYED TO ASSUMMING RN, PREVIOUSLY SIGNED ADVANCED DIRECTIVE IN PAPER CHART. PLAN OF CARE CONTINUES.
[2024-06-05] MEDS ORDERED: NS 1,000 ML IV ONE (20:20)
[2024-06-05 20:46] VITALS: BP 166/73
[2024-06-05] MEDS ORDERED: GuaiFENesin 600 MG TabCR PO SCH (21:00)
[2024-06-05] MEDS ORDERED: Doxycycline Hyclate 100 MG TAB PO SCH (21:00)
[2024-06-05 23:44] VITALS: BP 168/82
[2024-06-06] VITALS (10 sets, daily range): BP systolic 103–193; BP diastolic 62–106
[2024-06-06] MEDS ORDERED: Losartan Potassium 50 MG Tab PO SCH (00:40)
[2024-06-06] MEDS ORDERED: HydrALAZINE HCl 20 MG / ML 1ML Vial IV PRN (00:40)
--- NOTE | 2024-06-06 04:08 | NUR ---
SHIFT SUMMARY. PATIENT IS ALERT AND ORIENTED TO ALL; ABLE TO ANSWER ALL ORIENTATION QUESTIONS APPROPRIATELY ALTHOUGH REPORTS THAT SHE IS HAVING CONFUSION. PATIENT HAS UTI-URINE COLOR HAS IMPROVED. PATIENT IS URINATING ALTHOUGH SMALL AMOUNTS AT A TIME. PATIENT REPORTS SOME URGENCY. PATIENT IS ABLE TO STAND AND TURN TO BSC; OXYGEN DEMANDS INCREASE WITH AMBULATION-PATIENT HAS TOLERATED TRANSFERING TO BSC WITH 5LPM VIA NASAL CANNULA AND 3LPM VIA NASAL CANNULA AT REST. PATIENT USES CALL LIGHT; WILL PRESS BUTTONS UNTIL STAFF ARRIVE TO ROOM. PATIENT IS PLEASANT AND COOPERATIVE WITH CARE. BED IS LOCKED IN THE LOWEST POSITION, BAD ALARM IS ON FOR PATIENT SAFETY. CALL LIGHT IN REACH. CARE IS ONGOING.
[2024-06-06 04:57] LABS: BASOPHILS ABSOLUTE AUTO 0.06 K/mm3 (0.00-0.23); BASOPHILS PERCENT AUTO 0 % (0-2); EOSINOPHILS PERCENT AUTO 0 % (0-6); Hematocrit 32.7 % (33.0-51.0); Hemoglobin 10.7 g/dL (11.5-16.0); IMMATURE GRAN ABSOLUTE AUTO 0.68 K/mm3 (0.00-0.10); IMMATURE GRAN PERCENT AUTO 2 % (0-1); LYMPHOCYTES ABSOLUTE AUTO 0.61 K/mm3 (0.84-5.20); LYMPHOCYTES PERCENT AUTO 2 % (21-46); MONOCYTES ABSOLUTE AUTO 0.27 K/mm3 (0.16-1.47); MONOCYTES PERCENT AUTO 1 % (4-13); Mean Corpuscular HGB Conc 32.7 g/dL (31.5-36.5); Mean Corpuscular Volume 89 fL (80-100); Mean Platelet Volume 8.7 fL (9.1-12.4); NEUTROPHILS ABSOLUTE AUTO 29.11 K/mm3 (1.96-9.15); NEUTROPHILS PERCENT AUTO 95 % (41-73); Platelet Count 244 K/mm3 (150-400); RDW Coefficient Variation 14.6 % (11.7-14.2); RDW Standard Deviation 47.8 fL (35.1-46.3); Red Blood Cell Count 3.69 M/mm3 (3.80-5.20); White Blood Cell Count 30.73 K/mm3 (4.00-11.30)
[2024-06-06 05:17] LABS: Bun/Creatinine Ratio 29.9 (12.0-20.0); Calcium, Blood 8.9 mg/dL (8.5-10.1); Creatinine, Blood 0.9 mg/dL (0.40-1.00); Potassium, Blood 4.2 mmol/L (3.5-5.5)
[2024-06-06] MEDS ORDERED: Calcium Polycarbophil 625 MG Tab PO PRN (08:55)
[2024-06-06] MEDS ORDERED: Budesonide 0.5 MG/2 ML RESP INH SCH (08:55)
[2024-06-06] MEDS ORDERED: Aspirin 81 MG Chew PO SCH (09:00)
[2024-06-06] MEDS ORDERED: Ascorbic Acid 500 MG Tab PO SCH (09:00)
[2024-06-06] MEDS ORDERED: Cranberry Extract 250MG W/30 MG Vitamin C Tab PO SCH (09:00)
[2024-06-06] MEDS ORDERED: CefTRIAXone Sodium 1,000 MG in NS 100 ML IV SCH (09:00)
[2024-06-06] MEDS ORDERED: Ferrous Sulfate 325 MG Tab PO SCH (09:00)
[2024-06-06] MEDS ORDERED: Apixaban 5 MG Tab PO SCH (09:00)
[2024-06-06] MEDS ORDERED: Multivitamins/Minerals 1 Tab PO SCH (12:00)
[2024-06-06] MEDS ORDERED: dilTIAZem HCL 240 MG CAP.CD PO SCH (18:00)
--- NOTE | 2024-06-06 18:25 | NUR ---
SHIFT NOTE: PT A/OX4 BUT REPORTS INT CONFUSION. SHE IS [place] BUT EASILY REDIRECTABLY AND ABLE TO FOLLOW ALL COMMANDS. SHE IS IN NSR WITH RATES 100-120. SHE IS ON 3L NC AT REST BUT NEEDS UP TO 7L NC WITH EXCERTION. SHE HAS AUDIBLE WHEEZES AND HAS HAD RT TX T/O SHIFT. SHE IS 1P ASSIST TO THE BEDSIDE COMMODE FOR FREQUENT VOIDS. SHE REPORTS FEELING LIKE HER BACK IS GETTING SORES, MEPILEX PLACED FOR RELEIF AND FREQUENT REPOSITIONING BY STAFF. CARE CONTINUES
[2024-06-06 21:38] LABS: Base Excess Venous 0.3 mmol/L; Bicarbonate Venous 24.3 mmol/L (24.0-30.0); PCO2 Venous 48.6 mmHg (38-42); pH Blood Venous 7.34 (7.34-7.37)
--- NOTE | 2024-06-06 22:29 | NUR ---
NOTIFIED PROVIDER DR. VINCENT OF INCREASE WOB, INCREASE O2 DEMANDS AND CRACKLES. VBG AND BNP OBTAINED. RECEIVED ORDER FOR X1 LASIX IV 2OMG. TO NOTIFY OF NEXT 4H UOP.
[2024-06-06] MEDS ORDERED: Furosemide 10 MG / ML 2ML Vial IV ONE (22:30)
[2024-06-06] MEDS ORDERED: LORazepam 2 MG/ML 1ML Injection IV ONE (23:45)
[2024-06-06] MEDS ORDERED: HyDROXyzine HCl 25 MG Tab PO PRN (23:45)
[2024-06-07] VITALS (23 sets, daily range): BP systolic 86–186; BP diastolic 46–105
[2024-06-07] MEDS ORDERED: Carvedilol 3.125 MG Tab PO ONE (00:35)
[2024-06-07] MEDS ORDERED: LORazepam 2 MG/ML 1ML Injection IV ONE (00:40)
[2024-06-07] MEDS ORDERED: Furosemide 10 MG/ML 4ML Vial IV ONE (01:05)
--- NOTE | 2024-06-07 01:33 | NUR ---
0040 - Notified Dr. Sullivan of patient continued decline with HR in 140s, RR in 30s, on Bipap. Per provider give IV Lasix 40mg x1.
[2024-06-07 01:56] LABS: Source, Urine Clean Catch
[2024-06-07 02:06] LABS: Bilirubin, Urine Neg (Neg); Blood, Urine 3+ (Neg); Glucose Qualitative, Urine Neg (Neg); Ketones, Urine Neg (Neg); Leukocyte Esterase, Urine 1+ (Neg); Nitrite, Urine Neg (Neg); Protein, Urine 1+ (Neg); Urobilinogen, Urine NORM (Normal)
[2024-06-07 02:15] LABS: Appearance, Urine Clear (Clear); Color, Urine Pale Yellow (P-Yellow)
[2024-06-07 02:16] LABS: Bacteria Few /hpf; Squamous Epithelial Cells Mod /hpf (Few)
[2024-06-07 04:04] LABS: Hematocrit 32.1 % (33.0-51.0); Hemoglobin 10.7 g/dL (11.5-16.0); Mean Corpuscular HGB 29.3 pg (26.0-34.0); Mean Corpuscular HGB Conc 33.3 g/dL (31.5-36.5); Mean Corpuscular Volume 88 fL (80-100); Mean Platelet Volume 8.5 fL (9.1-12.4); NRBC ABSOLUTE 0.02 K/mm3 (0.00-0.02); Platelet Count 251 K/mm3 (150-400); RDW Coefficient Variation 14.9 % (11.7-14.2); RDW Standard Deviation 48.5 fL (35.1-46.3); Red Blood Cell Count 3.65 M/mm3 (3.80-5.20)
[2024-06-07 04:12] LABS: White Blood Cell Count 52.13 K/mm3 (4.00-11.30)
[2024-06-07 04:24] LABS: Bun/Creatinine Ratio 31.8 (12.0-20.0); Calcium, Blood 9.4 mg/dL (8.5-10.1); Creatinine, Blood 0.97 mg/dL (0.40-1.00)
[2024-06-07] MEDS ORDERED: Cefepime HCl 2,000 MG in NS 100 ML IV SCH (05:34)
[2024-06-07] MEDS ORDERED: Vitamin B Cmplx/Vit C/Folic Ac 1 Tab PO SCH (06:00)
--- NOTE | 2024-06-07 06:36 | NUR ---
NOC SHIFT SUMMARY PRITI WAS ORIENTED X3-4 AT START OF SHIFT. NOTED INCREASED WOB AND WHEEZING WITH SOME FINE CRACKLES IN BASES. ON 3-5L VIA NC (BASELINE 3L) AND TOLERATING WELL. NOTIFIED PROVIDER DR. VINCENT AND RT CRISOSTOMO TO BEDSIDE. NEB TX AND INCREASED O2 TO 5L BRIEFLY AND ABLE TO TITRATE BACK DOWN. VBG OBTAINED. AROUND 2230 PT CALLED OUT ACUTELY STATING SHE WAS SOA. HR IN 130S-140S, CRACKLES T/O. RR IN 30S. DR. VINCENT NOTIFIED AND 1X DOSE OF IV LASIX GIVEN, MD TO BEDSIDE. DECISION TO INITIATE ON BIPAP FOR WOB. DIFFICULTY IN KEEPING MASK ON, ANXIOUS AND PULLING AT MASK, TAKING OFF. ORDER FOR IV ATIVAN 0.5MG RECEIVED X2 AND PO ATARAX. TOLERATED WELL AND ABLE TO KEEP BIPAP ON. NOTED LITTLE UOP @300ML SINCE IV LASIX ADMIN, BLADDER SCAN COMPLETED AND OVER 900 IN BLADDER. 40 ADDITIONAL IV LASIX PER DR. EWING AND WHITE CATHETER PLACED WITH 1250ML OUT. BRIEF HYPOTENSIVE EPISODE AFTER BLADDER EMPTIED BUT RECOVERED. ATTEMPTED TO CALL ALEAH - SON BUT NO SELF IDENTIFYING VOICEMAIL BUT WAS ABLE TO CONTACT GABRIELLA WHO IS PT OTHER SON. DISCUSSED CONCERNS AND DECLINE IN PATIENT CONDITION. HE CAME TO BEDSIDE FOR PART OF THE NIGHT UNTIL RESPIRATORY STATUS IMPROVED. SPOKE WITH DR. BRADY AND CONFIRMS SHE IS A DNR/DNI. LETHARGIC THIS AM BUT RESPIRATORY STATUS IMPROVED. ON 6L BLEED IN THROUGH BIPAP AND TOLERATING WELL.
[2024-06-07 08:51] LABS: BASOPHILS ABSOLUTE AUTO 0.19 K/mm3 (0.00-0.23); BASOPHILS PERCENT AUTO 0 % (0-2); EOSINOPHILS PERCENT AUTO 0 % (0-6); IMMATURE GRAN ABSOLUTE AUTO 1.19 K/mm3 (0.00-0.10); IMMATURE GRAN PERCENT AUTO 2 % (0-1); LYMPHOCYTES ABSOLUTE AUTO 0.53 K/mm3 (0.84-5.20); LYMPHOCYTES PERCENT AUTO 1 % (21-46); MONOCYTES ABSOLUTE AUTO 1.04 K/mm3 (0.16-1.47); MONOCYTES PERCENT AUTO 2 % (4-13); NEUTROPHILS ABSOLUTE AUTO 49.92 K/mm3 (1.96-9.15); NEUTROPHILS PERCENT AUTO 94 % (41-73)
[2024-06-07] MEDS ORDERED: Lactobacil 2-S.Thermo-Bifido 1 1 Cap PO SCH (09:00)
[2024-06-07] MEDS ORDERED: Omega-3 Acid Ethyl Esters 1,000 MG CAP PO SCH ×2 (09:00)
[2024-06-07] MEDS ORDERED: MetroNIDAZOLE 500MG/NS 100 ml 100 ML IV SCH (11:24)
[2024-06-07 11:54] LABS: Base Excess Venous 6.4 mmol/L; Bicarbonate Venous 28.4 mmol/L (24.0-30.0); PCO2 Venous 56.3 mmHg (38-42); pH Blood Venous 7.36 (7.34-7.37)
--- NOTE | 2024-06-07 18:13 | NUR ---
SHIFT SUMMARY PT ARRIVED TO PCU 6 AT APPROXIMATELY 1640. PT AMBULATED FROM ER GURNEY TO HOSPITAL BED WITH SBA. A&Ox4, CALLS AND COMMUNICATES NEEDS APPROPRIATELY. BP STABLE, SINUS 70's, DENIES CP/PRESSURE. ARRIVED ON 4L VIA NC, TITRATED DOWN TO 2L VIA NC WITH SpO2> 92%, REPORTS INTERMITTENT SOB, WORSE WITH ACTIVITY. HACKING, NON PRODUCTIVE COUGH. DENIES PAIN. NO OTHER EVENTS, WILL REPORT TO ONCOMING RN.
--- NOTE | 2024-06-07 18:16 | NUR ---
SHIFT SUMMARY PT A&Ox2-3, VERY DROWSY AT START OF SHIFT BECOMING MORE ALERT AROUND MID DAY. VERY [place] BUT COMMUNICATES NEEDS APPROPRIATELY. BP ELEVATED AT START OF SHIFT, DECREASED WITH SCHEDULED BP MEDICATION. SR-ST 90-120's WITH PACs, DENIES CP/PRESSURE. SpO2> 92% 3-5L VIA, SOB WITH ACTIVITY. PT HAD LOTS OF FAMILY AT BEDSIDE THROUGHOUT DAY. WHITE CATH PATENT, DRAINING CLEAR YELLOW URINE TO GRAVITY. NO C/O PAIN. NO OTHER EVENTS, WILL REPORT TO ONCOMING RN.
[2024-06-07] MEDS ORDERED: dilTIAZem HCL 30 MG TAB PO PRN (18:40)
[2024-06-08] VITALS (8 sets, daily range): BP systolic 118–176; BP diastolic 54–102
[2024-06-08 04:33] LABS: Hematocrit 29.3 % (33.0-51.0); Hemoglobin 9.6 g/dL (11.5-16.0); Mean Corpuscular HGB 28.7 pg (26.0-34.0); Mean Corpuscular HGB Conc 32.8 g/dL (31.5-36.5); Mean Corpuscular Volume 88 fL (80-100); Mean Platelet Volume 8.6 fL (9.1-12.4); Platelet Count 311 K/mm3 (150-400); RDW Coefficient Variation 15.1 % (11.7-14.2); RDW Standard Deviation 48.5 fL (35.1-46.3); Red Blood Cell Count 3.35 M/mm3 (3.80-5.20); White Blood Cell Count 30.54 K/mm3 (4.00-11.30)
[2024-06-08 04:50] LABS: Calcium, Blood 8.8 mg/dL (8.5-10.1); Creatinine, Blood 1.35 mg/dL (0.40-1.00); Potassium, Blood 4.2 mmol/L (3.5-5.5)
[2024-06-08 05:27] LABS: BASOPHILS PERCENT MAN 0 % (0-2); EOSINOPHILS PERCENT MAN 0 % (0-6); LYMPHOCYTES ABSOLUTE MAN 0.61 K/mm3 (0.84-5.20); LYMPHOCYTES PERCENT MAN 2 % (21-46); MONOCYTES ABSOLUTE MAN 0.61 K/mm3 (0.16-1.47); MONOCYTES PERCENT MAN 2 % (4-13); MYELOCYTE PERCENT MAN 1 % (0-0); NEUTROPHILS ABSOLUTE MAN 29.01 K/mm3 (1.96-9.15); SEG NEUTROPHILS PERCENT MAN 95 % (41-73); TOTAL CELLS COUNTED 100
[2024-06-08 05:35] LABS: PCO2 Arterial 48.1 mmHg (35-45); PO2 Arterial 56.9 mmHg (80-100)
--- NOTE | 2024-06-08 05:46 | NUR ---
SHIFT SUMMARY A/Ox2 AND COOPERATIVE WITH CARE. INTERMITTENT CONFUSION WHEN WAKING UP, BUT ABLE TO MAKE HER NEEDS KNOWN. CAN BE VERY ANXIOUS AT TIMES. CARDIAC, REMAINS IN SR-ST RANGING 90-120 S WITH NO REPORTS OF CP, PRESSURE OR DIZZINESS. SBP REMAINS STABLE RANGING 110-130 S. RESPIRATORY, MAINTAINS SPO2 >90% ON 5-6L NC WITH BOUTS OF INCREASED SOB. DESATS WITH MINIMAL EXERTION, BUT RESPONDS WELL TO SCHEDULED BREATHING TREATMENTS. GI/, DENIES N/F/D OR ABD PAIN. WHITE CATH PATENT DRAINING CLEAR URINE TO GRAVITY. Q2HR REPOSITIONING PERFORMED ORDERED. CHEST XRAY DONE THIS AM. NO NEW ORDERS AT THIS TIME, WILL REPORT TO ONCOMING RN. ROSANGELA ORO OF THIS NOTE.
[2024-06-08] MEDS ORDERED: Lactated Ringer's 500 ML IV ONE (09:45)
--- NOTE | 2024-06-08 16:50 | NUR ---
UPDATE: PT REPORTING SOB AND INCREASES WOB. THIS RN AT BEDSIDE TO EVALUATE PT. PT SITTING UP IN BED IN A TRIPOD POSITION. O2 SATS >90% ON 6L NC. PT HYPERTENSIVE AND TACHYCARDIC IN THE 120-130'S. LUNG SOUNDS DIM, TIGHT AND WHEEZY. RT CALLED FOR A BREATHING TX. PROVIDER DR SHABAZZ NOTIFIED AND GAVE ORDER FOR PO ROXANOL.
[2024-06-08] MEDS ORDERED: Morphine Sulfate 20 MG/1ML 1 ML Oral Syringe PO STA (17:05)
[2024-06-08] MEDS ORDERED: Morphine Sulfate 20 MG/1ML 1 ML Oral Syringe PO PRN ×2 (17:05→18:00)
--- NOTE | 2024-06-08 17:55 | NUR ---
UPDATE: PT REPORTS NO RELIEF FROM ROXALON AND STILL CONTINUES BACK AND FORTH FROM A RESTING TO A TRIPODING POSITION. PT APPEARS ANXIOUS AND SKAKE. REMAINS TACHYCARDIC. HAS NOT REQUIRED INCREASED OXYGEN NEEDS. DR SHABAZZ UPDATED AND THIS RN REQUESTED MEDS FOR ANXIETY. VERBAL ORDER FOR 0.5MG OF ATIVAN IV OT NOW GIVEN.
--- NOTE | 2024-06-08 17:56 | NUR ---
UPDTAE: PT CONTINUES TO BE SOB, TACHY AND HYPERTENSIVE. PROVIDER DR SHABAZZ NOTIFIED AND GAVE VERBAL ORDER FOR 0.5MG ATIVAN OT.
[2024-06-08] MEDS ORDERED: LORazepam 2 MG/ML 1ML Injection IV ONE (18:00)
--- NOTE | 2024-06-08 18:45 | NUR ---
SHIFT SUMMARY: SEE PREVIOUS NOTES. PT RESTING IN BED COMFORTABLY. REPORTS FEELING MORE RELAXED AND ABLE TO BREATHE BETTER. REMAINS ON 4L NC. PT WAS A&OX4 THROUGOUT DAY. CALLED APPROPRIATELY AND MADE NEEDS KNOWN TO STAFF. PT DID NOT GET OUT OF BED TODAY DUE TO RESP STATUS. PTS CAREGIVER REPORTS THAT PT ONLY GETS OUT OF BED TO USE A COMMODE AT HOME DUE TO SOB WITH EXERTION. PT WAS TURNED Q2 HOURS. PT BECAME VERY SOB WITH ANY KIND OF ACTIVITY EVEN WHILE RECIEVING A BED BATH THAT SHE DID NOT ASSIST WITH. PT TOOK Q WHILE TO RECOVER AND REQUIRED MORE OXYGEN. WHITE WAS REMOVED THIS AFTERNOON AND PURE WICK WAS PLACE. PT HAS NOT HAD ANY URINARY OUTPUT AT THIS TIME. BLADDER SCAN WAS PERFORMED AND RESULTED 290. NO OTHER SIGNIFICANT EVENTS HAPPENED DURING THIS SHIFT. WILL CONTINUE TO CARE FOR PT TILL END OF SHIFT.
--- NOTE | 2024-06-08 22:35 | NUR ---
ASSUMPTION OF CARE THIS RN ASSUMED CARE OF PATIENT AT 1900. PT WITH SON AT BEDSIDE PLAYING DICE DURING BEDSIDE SHIFT REPORT. PT ON 6L VIA OXY MASK. ST ON MONITOR WITH HR 120-140'S. SBP 150-160. PT REPORTS SOB AT REST. DENIES CHEST PAIN/PRESSURE. PT GIVEN PRN PO CARDIZEM ALONG WITH NOC MEDS. MEDS GIVEN WHOLE WITH APPLESAUCE; PT TOLERATED WELL. PT A&O. REPOSITIONING Q2HRS AND PRN. PUREWICK IN PLACE. BLADDER SCAN DONE AT SHIFT CHANGE WITH 290MLS IN BLADDER; WHITE CATHETER WAS DC'D AT THE END OF THE PREVIOUS SHIFT. POOR INTAKE. WILL MONITOR FOR NEED TO STRAIGHT CATH. NO OUTPUT AT TIME OF WRITING THIS NOTE. BED IN LOWEST POSITION AND CALL LIGHT WITHIN REACH.
[2024-06-09 03:42] VITALS: BP 142/66
--- NOTE | 2024-06-09 05:00 | NUR ---
SHIFT SUMMARY SEE PREVIOUS NOTE AND ASSESSMENT. NEURO INTACT. PT REMAINS ON 6L VIA NC. SR/ST ON TELE. OTHERWISE VSS. PT REPORTS FEELING "MUCH BETTER" THIS MORNING. PUREWICK IN PLACE; PT UNABLE TO VOID. STRAIGHT CATH PERFORMED WITH 500MLS OUT. BED ALARM ON FOR SAFETY. NO ACUTE CHANGES. BED IN LOWEST POSITION AND CALL LIGHT WITHIN REACH. THIS RN WILL REPORT TO ONCOMING DAYSHIFT RN.
[2024-06-09 07:37] VITALS: BP 135/61
--- NOTE | 2024-06-09 07:45 | NUR ---
ASSUMPTION NOTE: THIS RN TO ASSUME CARE OF PATIENT. PATIENT SITTING UP IN BED. BEDSIDE SHIFT REPORT DONE & PATIENT DENYING AT NEEDS AT THIS TIME. THIS RN LET PATIENT KNOW WILL BE BACK AFTER GETTING REPORT ON OTHER PATIENTS. PATIENT HAS CALL LIGHT WITHIN REACH & BED IN LOWEST POSITION.
[2024-06-09 08:05] LABS: BASOPHILS ABSOLUTE AUTO 0.04 K/mm3 (0.00-0.23); BASOPHILS PERCENT AUTO 0 % (0-2); EOSINOPHILS PERCENT AUTO 0 % (0-6); Hematocrit 31.3 % (33.0-51.0); Hemoglobin 10.2 g/dL (11.5-16.0); IMMATURE GRAN ABSOLUTE AUTO 0.33 K/mm3 (0.00-0.10); IMMATURE GRAN PERCENT AUTO 2 % (0-1); LYMPHOCYTES ABSOLUTE AUTO 0.49 K/mm3 (0.84-5.20); LYMPHOCYTES PERCENT AUTO 2 % (21-46); MONOCYTES ABSOLUTE AUTO 0.46 K/mm3 (0.16-1.47); MONOCYTES PERCENT AUTO 2 % (4-13); Mean Corpuscular HGB 28.3 pg (26.0-34.0); Mean Corpuscular HGB Conc 32.6 g/dL (31.5-36.5); Mean Corpuscular Volume 87 fL (80-100); Mean Platelet Volume 8.5 fL (9.1-12.4); NEUTROPHILS ABSOLUTE AUTO 19.47 K/mm3 (1.96-9.15); NEUTROPHILS PERCENT AUTO 94 % (41-73); Platelet Count 335 K/mm3 (150-400); RDW Coefficient Variation 14.9 % (11.7-14.2); RDW Standard Deviation 47.7 fL (35.1-46.3); White Blood Cell Count 20.79 K/mm3 (4.00-11.30)
[2024-06-09 08:10] LABS: Bun/Creatinine Ratio 44.6 (12.0-20.0); Calcium, Blood 9.5 mg/dL (8.5-10.1); Creatinine, Blood 1.12 mg/dL (0.40-1.00); Potassium, Blood 4.2 mmol/L (3.5-5.5)
--- NOTE | 2024-06-09 09:16 | NUR ---
UPDATE: BREAK RN TOOK VITALS FOR THIS RN BLOOD PRESSURE TO BE LOW AND BREAK NURSE CALLED MD AND MD STATED TO GIVE MIDODRINE EARLY. THIS RN GAVE MIDODRINE PER VERBAL ORDER AND CHEKCED BLOOD PRESSURE 40 MINUTES AFTER BEING ADMINSTED AND BLOOD PRESSURE CONTINUES TO BE LOW. THIS RN CALLED MD AND A 500ML BOLUS TO BE ADMINISTERED. PATIENT AWARE AND BOLUS IS CURRENTLY RUNNING. PATIENT DENIED FEELING ANY CHANGE OF SYMPTOMS OR WORSENING. HAS CALL LIGHT WITHIN REACH & BED IN LOWEST POSITION.
[2024-06-09 11:38] VITALS: BP 140/81
--- NOTE | 2024-06-09 11:38 | NUR ---
MD TO BEDSIDE: MD TO BEDSIDE AND TALKED WITH PATIENT AND FAMILY ABOUT PLANS. MD ORDRED PT/OT, FLUTTER & INCENTIVE SPIRORMETERY. MD ENCOURAGED PT TO GET UP FOR LUNCH DID THIS RN, PATIENT HESITANT AT FIRST THEN AGREED TO GET UP. THIS RN TO GIVE SOME ANTI ANXIETY MEDICATIONS PRIOR PATIENT STATED SHE WAS A LITTLE "ANXIOUS". FAMILY REQUESTED THAT ONLY 3 PEOPLE AT A TIME COME TO PATIENTS ROOM. MD AWARE THAT PATIENT WAS BLADDER SCANNED THIS MORNING OF 200 RETAINING AND WAS STRAIGHT CATH'D LAST NIGHT. PATIENT AWARE THAT A POSSIBLE STRAIGHT CATH WOULD BE NEEDED THROUGHOUT SHIFT AGAIN. PATIENT STATED NOTHING IS NEEDED AT HTIS TIME AND RN WILL BE BACK TO TEACH HER ABOUT FLUTTER & INCENTIVE SPIRORMETRY.
[2024-06-09] MEDS ORDERED: LORazepam 2 MG/ML 1ML Injection IV PRN (11:40)
--- NOTE | 2024-06-09 13:54 | NUR ---
MD CALLED: THIS RN CALLED MD REGARDING PATIENTS BLADDER SCAN VOLUME. MD STATED TO BLADDER SCAN ONCE MORE THROUGHOTU SHIFT IF VOLUME IS OVER 200MLS TO PLACE A WHITE CAETHER FOR RETENTION.
[2024-06-09 16:32] VITALS: BP 151/79
--- NOTE | 2024-06-09 16:52 | NUR ---
SHIFT SUMMARY: PATIENT IS ALERT AND ORIENTED X4, HARD OF HEARING, MUMBLES & IS FORGETFUL AT TIMES. TAKES A MINTUE TO ANSWER QUESTIONS AND OFTEN FIXATES ON THAT ANSWER FOR TIME BEING. PATIENT IS ON TELE SHOWING SINUS RYTHM TO SINUS TACH HIGHEST TOUCHING 120'S WITH EXERTION. PATIENT SATTING >92% ON 6-7 LITERS VIA HEATED HIGH FLOW. PATIENT DOES DESAT WITH EXERTION AND NEEDS TO BE REMINDED TO SMELL THE ROSES AND BLOW OUT THE CANDLES. WAS TAUGHT HOW TO USE THE FLUTTER VALVE TODAY. PATIENT WORKED WITH OCCUPATIONAL THERAPY, THEIR NOTES ARE IN THE CHART. PATIENT'S FAMILY CAME TO VISIT AND WOULD LIKE TO LIMIT THE AMOUNT OF VISITORS AND TO CHECK IN WITH THE NURSE PRIOR TO ENTERING. PATIENT GOT UP FOR LUNCH BUT DENIED GETTING UP FOR DINNER AFTER BEING EDUCATED WITH THE BENEFITS. PATIENT WAS STRAIGHT CATH'D AND PENDING ANOTHER BLADDER SCAN IF THE VOLUME IS OVER 200 TO GET A WHITE PLACED. PATIENT AWARE AND UNDERSTANDS THE NEEDS. PATIENT DENYING ANY NEEDS AT THIS TIME, HAS BED IN LOWEST POSITION AND CALL LIGHT WITHIN REACH.
[2024-06-09 20:26] VITALS: BP 150/91
[2024-06-10] VITALS (7 sets, daily range): BP systolic 124–165; BP diastolic 67–94
[2024-06-10 04:22] LABS: BASOPHILS ABSOLUTE AUTO 0.04 K/mm3 (0.00-0.23); BASOPHILS PERCENT AUTO 0 % (0-2); EOSINOPHILS PERCENT AUTO 0 % (0-6); Hematocrit 29.3 % (33.0-51.0); Hemoglobin 9.6 g/dL (11.5-16.0); IMMATURE GRAN ABSOLUTE AUTO 0.34 K/mm3 (0.00-0.10); IMMATURE GRAN PERCENT AUTO 2 % (0-1); LYMPHOCYTES ABSOLUTE AUTO 0.39 K/mm3 (0.84-5.20); LYMPHOCYTES PERCENT AUTO 2 % (21-46); MONOCYTES PERCENT AUTO 2 % (4-13); Mean Corpuscular HGB 28.9 pg (26.0-34.0); Mean Corpuscular HGB Conc 32.8 g/dL (31.5-36.5); Mean Corpuscular Volume 88 fL (80-100); Mean Platelet Volume 8.8 fL (9.1-12.4); NEUTROPHILS ABSOLUTE AUTO 17.95 K/mm3 (1.96-9.15); NEUTROPHILS PERCENT AUTO 94 % (41-73); NRBC ABSOLUTE 0.02 K/mm3 (0.00-0.02); NRBC Auto 0.1 /100 WBC (0.0-0.2); Platelet Count 355 K/mm3 (150-400); RDW Coefficient Variation 15.2 % (11.7-14.2); RDW Standard Deviation 48.5 fL (35.1-46.3); Red Blood Cell Count 3.32 M/mm3 (3.80-5.20); White Blood Cell Count 19.12 K/mm3 (4.00-11.30)
[2024-06-10 04:38] LABS: Bun/Creatinine Ratio 47.3 (12.0-20.0); Calcium, Blood 9.3 mg/dL (8.5-10.1); Creatinine, Blood 1.12 mg/dL (0.40-1.00); Potassium, Blood 4.4 mmol/L (3.5-5.5)
--- NOTE | 2024-06-10 06:52 | NUR ---
pT RESTED COMFORTABLEY, NO S/S OF ANXIETY. PT REMAINS ON 6 LITERS, HEARTRATE IN THE 90'S. PT DENIES PAIN. WHITE CATHETER DRAINING CLEAR, YELLOW URINE. CALL LIGHT IN REACH, NO S/S OF DISTRESS NOTED
[2024-06-10] MEDS ORDERED: Vancomycin HCL 1,250 MG in NS 250 ML IV SCH (10:30)
--- NOTE | 2024-06-10 18:13 | NUR ---
SUMMARY- PT AAOX1-3 THIS SHIFT. THIS MORNING PT DISORIENTED TO SELF (PT UNAWARE OF YEAR BORN), AND DISORIENTED TO DATE AND SITUATION. ON 6-7 L O2 OXYMASK/NC. PT NEEDED UP TO 10 L TO RECOVER AFTER MOVING TO CHAIR/ANY EXERTION. NO COMPLAINTS OF PAIN. X1-2 ASSIST. PT HAS MODERATE APPETITE.
[2024-06-10] MEDS ORDERED: MethylPREDNISolone Sod Succ 125 MG Vial IV SCH (21:00)
[2024-06-11] VITALS (7 sets, daily range): BP systolic 122–157; BP diastolic 72–100
[2024-06-11 04:17] LABS: Hematocrit 30.3 % (33.0-51.0); Hemoglobin 9.9 g/dL (11.5-16.0); Mean Corpuscular HGB 29.1 pg (26.0-34.0); Mean Corpuscular HGB Conc 32.7 g/dL (31.5-36.5); Mean Corpuscular Volume 89 fL (80-100); Mean Platelet Volume 8.9 fL (9.1-12.4); Platelet Count 423 K/mm3 (150-400); RDW Coefficient Variation 15.3 % (11.7-14.2); RDW Standard Deviation 49.9 fL (35.1-46.3); White Blood Cell Count 24.62 K/mm3 (4.00-11.30)
[2024-06-11 04:36] LABS: Anion Gap 10 mmol/L (3-11); Blood Urea Nitrogen 54 mg/dL (8-24); Bun/Creatinine Ratio 47.8 (12.0-20.0); CO2, Blood 25 mmol/L (21-32); Calcium, Blood 9.5 mg/dL (8.5-10.1); Chloride, Blood 109 mmol/L (98-108); Creatinine, Blood 1.13 mg/dL (0.40-1.00); Glomerular Filtration Rate 47 (60-); Glucose, Blood 178 mg/dL (70-99); Potassium, Blood 4.1 mmol/L (3.5-5.5); Sodium, Blood 140 mmol/L (136-145); Vancomycin, Random 13.7 ug/mL
[2024-06-11] MEDS ORDERED: Vancomycin HCL 750 MG in NS 250 ML IV ONE (06:00)
--- NOTE | 2024-06-11 06:05 | NUR ---
PT RESTED AT INTERVALS. OXYGEN ON HIGH FLOW AT 60%, O2 SATS 95% AND HIGHER. PT DENIES PAIN, STATES SHE IS SORE, TURNED AND REPOSITIONED, MADE COMFORTABLE. WHITE CATHETER REMAINS IN PLACE, DRAINING CLEAR YELLOW URINE, CALL LIGHT IN REACH
[2024-06-11] MEDS ORDERED: GuaiFENesin 100 MG/5 ML 5ML UDC PO PRN (10:15)
--- NOTE | 2024-06-11 10:16 | NUR ---
AM NOTE: PATIENT ALERT AND ORIENTED TO SELF, FAMILY AND CURRENT SITUATION. SHE IS AWARE SHE IS AT A HOSPITAL BUT STATES IT IS IN [place]. FORGETFUL AT TIMES. HARD OF HEARING. SOFT SPOKEN. PERRLA. DENIES NUMBNESS/TINGLING. VERY WEAK. 2 PERSON MAX TRANSFERS. Q2 TURNING AND NEEDED. PATIENT ABLE TO MOVE ALL EXTREMITIES. TELE SHOWING SINUS TACH WITH HR 100-110'S. DENIES CHEST PAIN/PRESSURE/PALPITATIONS. NO EDEMA NOTED. IV ABX INFUSED. SBP 140'S. PPP. ON AIRVO AT 40L AND 47% FIO2 SATING FROM 90-93%. INCREASED WORK OF BREATHING WITH ACTIVITY/TALKING/ANXIETY. LUNG SOUNDS COARSE WITH INTERMIT WHEEZING THROUGHOUT. RESPIRATORY IN FOR BREATHING TREATMENTS. VERY WEAK/MOIST SOUNDING COUGH. NO SPUTUM PRODUCTION THIS MORNING. DR. HAYDEN BY TO SEE PATIENT, THIS RN AND FAMILY PRESENT. PLAN FOR CHEST XRAY AND SPUTUM SAMPLE. BOWEL TONES PRESENT. SPEECH THERAPY ORDERS IN PLACE. SUPERVISION. MEDS WITH APPLESAUCE. ATTENDS IN PLACE. WHITE CATH DRAINING YELLOW/ERIC URINE TO GRAVITY. DENIES ABDOMINAL PAIN/NAUSEA. SKIN FRAGILE WITH SCATTERED BRUISING/SCABS. DR. RIGGINS TO BEDSIDE THIS AM, THIS RN PRESENT FOR MD BIGGS. CALL LIGHT IN REACH. SON AND DAUGHTER IN [place] REMAIN AT BEDSIDE.
[2024-06-11] MEDS ORDERED: MethylPREDNISolone Sod Succ 125 MG Vial IV SCH ×2 (12:00→14:00)
[2024-06-11] MEDS ORDERED: HyDROXyzine HCl 25 MG Tab PO PRN (18:09)
--- NOTE | 2024-06-11 18:29 | NUR ---
SHIFT SUMMARY: NO ACUTE CHANGES. PATIENT REMAINS ALERT AND ORIENTED BUT FORGETFUL. HARD OF HEARING. VITAL SIGNS STABLE. TELE SHOWING SR/ST WITH HR 90-120'S. IV ABX INFUSED THIS SHIFT. AIRVO AT 40L AND 43% AT THIS TIME SATING LOW-MID 90'S. INCREASED WORK OF BREATHING WITH ANXIETY AND MOVING IN BED. MEDICATED PER EMAR FOR ANXIETY AND AIR HUNGER WITH GOOD RELIEF. TOLERATING PO DIET. WHITE CATH REMAINS IN PLACE DRAINING YELLOW URINE. PATIENT USING FLUTTER VALVE THROUGHOUT SHIFT. PATIENT CONTINUES TO HAVE MOIST WEAK COUGH WITH LIMITED SPUTUM PRODUCTION. SPUTUM SAMPLE NEEDING TO BE COLLECTED. CALL LIGHT IN REACH.
--- NOTE | 2024-06-11 19:40 | NUR ---
ASSUMPTION OF CARE ASSUMED PT'S CARE AT 1900,BEDSIDE REPORT COMPLETED.PLAN OF CARE REVIEWED.PT SITTING UP IN BED WITH HOB ELEVATED, ON AIRVO 40L 40%.NOTED TO BE TAKING DEEP BREATHS OCCASIONALLY.VISITOR AT BEDSIDE.PT DENIES PAIN,DENIES NEEDS AT THIS TIME.CALL LIGHT AND PT'S ITEMS WITHIN REACH,WILL CONTINUE TO MONITOR.
[2024-06-12] VITALS (7 sets, daily range): BP systolic 137–161; BP diastolic 64–91
[2024-06-12] MEDS ORDERED: Vancomycin HCL 750 MG in NS 250 ML IV SCH (06:00)
--- NOTE | 2024-06-12 06:29 | NUR ---
SHIFT SUMMARY PT SLEPT MOST OF THE NIGHT.PT'S OXYGEN SATURATION DROPS DOWN TO 86% WITH REPOSITIONING.IT TAKES A FEW MINUTES FOR PT TO RECOVER.PT GIVEN PRN ROXANOL 5MG X1 FOR AIR HUNGER.PT DENIES PAIN,DENIES NEEDS THIS MORNING.ON AIRVO 40L AND 42% FIO2.CALL LIGHT AND PT'S ITEMS WITHIN REACH.WILL GIVE REPORT TO DAYSHIFT NURSE FOR CONTINUITY OF CARE.
[2024-06-12 08:37] LABS: Hematocrit 30.7 % (33.0-51.0); Hemoglobin 10.2 g/dL (11.5-16.0); Mean Corpuscular HGB 29.4 pg (26.0-34.0); Mean Corpuscular HGB Conc 33.2 g/dL (31.5-36.5); Mean Corpuscular Volume 89 fL (80-100); Mean Platelet Volume 9.1 fL (9.1-12.4); NRBC ABSOLUTE 0.02 K/mm3 (0.00-0.02); NRBC Auto 0.1 /100 WBC (0.0-0.2); Platelet Count 446 K/mm3 (150-400); RDW Coefficient Variation 15.3 % (11.7-14.2); RDW Standard Deviation 48.8 fL (35.1-46.3); Red Blood Cell Count 3.47 M/mm3 (3.80-5.20); White Blood Cell Count 17.82 K/mm3 (4.00-11.30)
[2024-06-12 08:50] LABS: Bun/Creatinine Ratio 52.4 (12.0-20.0); Calcium, Blood 9.2 mg/dL (8.5-10.1); Creatinine, Blood 1.03 mg/dL (0.40-1.00); Potassium, Blood 3.9 mmol/L (3.5-5.5)
[2024-06-12] MEDS ORDERED: Docusate Sodium 100 MG Cap PO SCH (09:00)
[2024-06-12] MEDS ORDERED: Magnesium Hydroxide Conc 10 ML UDC PO PRN (09:00)
[2024-06-12] MEDS ORDERED: Dornase Alfa 1 MG/ML Neb INH SCH (10:00)
--- NOTE | 2024-06-12 10:44 | NUR ---
AM NOTE: PATIET ALERT AND ORIENTED X3. FORGETFUL. SOFT SPOKEN. VERY WEAK, ABLE TO MOVE ALL EXTREMITIES. TIRES EASILY. PERRLA. DENIES PAIN. TELE SHOWING SINUS TACH WITH HR 90-110'S. DENIES CHEST PAIN/PRESSURE/PALPITATIONS. MILD EDEMA NOTED TO BILATERAL ARMS AND FEET. IV ABX INFUSED AND SALINE LOCKED. WEARING 40L AND 50% FIO2. TITRATING FIO2 FOR CARES AND EATING. DESATING TO MID 80'S. WITH TURNS/TALKING/EATING. AT TIMES LABORED RESPIRATIONS WITH ANXIETY AND EXCERTION. LUNG SOUNDS COARSE WITH INTERMIT WHEEZING. RESPIRATORY IN FOR BREATHING TREATMENTS. PATIENT USING FLUTTER AT BEDSIDE. SPUTUM SAMPLE NEEDED. OCCASIONAL MOIST/LOOSE SOUNDING WEAK COUGH. BOWEL TONES PRESENT. TOLERATING SPEECH THERAPY. PUREE DIET. DENIES ABDOMINAL PAIN/NAUSEA. NO BOWEL MOVEMENT IN MULTIPLE DAYS. BOWEL CARE MEDS STARTED THIS MORNING. ATTENDS IN PLACE. WHITE CATH IN PLACE DRAINING TO GRAVITY. BED BATH AND CATH CARE COMPLETED THIS MORNING. SKIN OVERALL FRAGILE/SCATTERED BRUISING. MEPILEX IN PLACE OVER COCCYX FOR PREVENTION. DR. RIGGINS TO BEDSIDE THIS AM. FAMILY PRESENT.
--- NOTE | 2024-06-12 18:22 | NUR ---
SHIFT SUMMARY: PATIENT REMAINS ALERT AND ORIENTED X3 WITH FORGETFULLNESS. SLEPT INBETWEEN MEALS AND CARES. SONS AT BEDSIDE THIS AM AND UPDATED BY THIS RN AND DR. RIGGINS. TELE SHOWING SR/ST WITH HR 80-100'S. DENIES CHEST PAIN/PRESSURE THROUGHOUT SHIFT. IV ABX INFUSED. AIRVO AT 40L AND 45%. TITRATING FIO2 FOR MEALS AND TURNS. TOLERATING PUREE DIET. WHITE CATH CONTINUES TO DRAIN TO GRAVITY. DENIES PAINS. EATING DINNER AT THIS TIME. CALL LIGHT IN REACH. DENIES NEEDS.
--- NOTE | 2024-06-12 19:25 | NUR ---
ASSUMPTION OF CARE PT AWAKE WATCHING TV,PT'S BROTHER AT BEDSIDE.BEDSIDE REPORT COMPLETED.PT ON AIRVO 40L 49%FIO2.OXYGEN SATURATION 93%.PT REPORTS HAVING SOME DIFFICULTY CATCHING A BREAT.HOB ELEVATED,PT REPORTS IMPROVEMENT.PLAN OF CARE REVIEWED,CALL LIGHT AND PT'S ITEMS WITHIN REACH,WILL CONTINUE TO MONITOR.
[2024-06-13] VITALS (7 sets, daily range): BP systolic 134–160; BP diastolic 74–94
[2024-06-13 05:01] LABS: Hemoglobin 9.1 g/dL (11.5-16.0); Mean Corpuscular HGB 29.5 pg (26.0-34.0); Mean Corpuscular HGB Conc 33.7 g/dL (31.5-36.5); Mean Corpuscular Volume 88 fL (80-100); NRBC ABSOLUTE 0.02 K/mm3 (0.00-0.02); NRBC Auto 0.1 /100 WBC (0.0-0.2); Platelet Count 382 K/mm3 (150-400); RDW Coefficient Variation 15.5 % (11.7-14.2); Red Blood Cell Count 3.08 M/mm3 (3.80-5.20); White Blood Cell Count 15.97 K/mm3 (4.00-11.30)
[2024-06-13 05:19] LABS: Anion Gap 8 mmol/L (3-11); Blood Urea Nitrogen 55 mg/dL (8-24); Bun/Creatinine Ratio 53.9 (12.0-20.0); CO2, Blood 27 mmol/L (21-32); Calcium, Blood 8.6 mg/dL (8.5-10.1); Chloride, Blood 110 mmol/L (98-108); Creatinine, Blood 1.02 mg/dL (0.40-1.00); Glomerular Filtration Rate 54 (60-); Glucose, Blood 162 mg/dL (70-99); Potassium, Blood 4.2 mmol/L (3.5-5.5); Sodium, Blood 141 mmol/L (136-145); Vancomycin, Trough 14.5 ug/mL (5.0-10.0)
--- NOTE | 2024-06-13 06:26 | NUR ---
PT SLEPT MOST OF THE NIGHT,REPORTS THAT SHE HAD A GOOD NIGHT SLEEP AND REST.PT SAYS THAT SHE NEEDS REST DURING THE DAYTIME BUT SHE HAS TOO MANY FAMILY MEMBERS WHO COME TO VISIT AND THUS GETS NO REST.SAYS THAT SHE WILL TELL THEM TO GO HOME.MAINTAINED OXYGEN SATURATION >92% ON 40L OF OXYGEN AND 49%FIO2.TOLERATED REPOSITIONING Q2H WITHOUT DIFFICULTY OR OXYGEN SATURATION DROPPING.USED THE FLUTTER VALVE WHILE AWAKE.PT DENIES PAIN,DENIES NEEDS.CALL LIGHT AND PT'S ITEMS WITHIN REACH. WILL GIVE REPORT TO DAYSHIFT NURSE FOR CONTINUITY OF CARE.
--- NOTE | 2024-06-13 13:59 | NUR ---
INITIAL PALLIATIVE CARE VISIT: MET WITH PT IN HER ROOM. PT IS AWAKE AND WATCHING TV. PT ON AIRVO AND APPEARS TO BE RESTING COMFORTABLY. PT EASILY BECOMES SOB WITH TALKING. WE DISCUSS HER CURRENT SYMPTOMS. PT STATES SHE ONLY BECOMES SOB WITH TALKING. AT REST SHE IS NOT SOB. SHE STATES IT IS NOPT BOTHERSOME AT THIS TIME. PT REPORTS SHE FEELS CONSTIPATED AND HAS NOT HAD A BM SINCE SHE WAS ADMITTED. SHE IS PASSING GAS HOWEVER. I SPOKE TO PRIMARY RN AFTER OUR CONVERSATION AND RN STATED PT DID HAVE A BM THIS MORNING. PT HAS FIBER CON AND MOM ON AVAILABLE TO TAKE FOR CONSTIPATION. PT REPORTS SHE DOES NOT LIKE THE FOOD "IT IS TOO BLAND". PT IS ON PUREED DIET. DISCUSSED WITH PT WHY SHE IS ON MODIFIED TEXTURE DIET. PT STATES SHE LIKES [place] FOOD AND THE FOOD HERE IS TASTELESS. ALSO DISCUSSED HEART HEALTHY AND RENAL DIET LIMITATIONS WITH PT. PT STATES SHE IS WILLING TO TRY A PROTEIN SHAKE. DISCUSSED THIS OOPTION WITH THE PRIMARY RN. PT WAS REPORTED TO HAVE EATEN ALL OF HER BREAKFAST THIS MORNING BUT SHE DID NOT EAT HER LUNCH. PT ALSO C/O HAVING TOO MANY VISITORS. SHE STATES SHE IS NOT GETTING ENOUGH REST. PLAN WILL BE TO PLACE SIGN ON DOOR FOR VISITORS TO CHECK WITH RN PRIOR TO ENTERING. IF PATIENT IS RESTING VISITORS WILL BE ASKED TO COME AT A LATER TIME. PT IS AGREEABLE TO POC. PRIMARY RN AGREES WITH POC.
--- NOTE | 2024-06-13 16:19 | NUR ---
UPDATE PT ROLLED AND PLACED ON BEDPAN. AFTER PATIENT PLACED ON BEDPAN, RR INCREASED TO 30'S, HR INCREASED TO 140'S AND O2 SATS DECREASED TO LOW 70'S. FIO2 INCREASED TO 55% AND WITHIN MINUTES O2 SATS INCREASED TO 90%. RR REMAINS MID TO HIGH 20'S. PT MEDICATED PER EMAR FOR AIR HUNGER. PT REPORTS BREATHING HAS IMPROVED.
--- NOTE | 2024-06-13 17:12 | NUR ---
SHIFT SUMMARY PT REMAINS ALERT AND ORIENTED TO SELF, PLACE AND SITUATION. PT IS FORGETFUL AT TIMES, BUT EASILY REORIENTS. PT ON AIRVO AT 40L AND 40% FIO2 THIS EVENING WITH SATS >90%. PT EDUCATED ON USE OF INCENTIVE SPIROMETER. PT REPOSITIONED Q2H. WHITE PATENT AND DRAINING. PT HAD TWO BM THIS SHIFT IN BEDPAN. PT DENIES ANY PAIN. WILL REPORT OFF TO ONCOMING RN
--- NOTE | 2024-06-13 19:31 | NUR ---
ASSUMPTION OF CARE ASSUMED PT'S CARE AT 1900,BEDSIDE REPORT COMPLETED.PT RESTING IN BED WATCHING TV,ON AIRVO 40L 40% FIO2,OXYGEN SATURATION 91%.PLAN OF CARE REVIEWED,PT DENIES PAIN,DENIES SOB,DENIES NEEDS AT THIS TIME.CALL LIGHT AND PT'S ITEMS WITHIN REACH.WILL CONTINUE TO MONITOR.
[2024-06-14] VITALS (7 sets, daily range): BP systolic 115–184; BP diastolic 69–103
[2024-06-14] MEDS ORDERED: MethylPREDNISolone Sod Succ 40 MG VIAL IV SCH
--- NOTE | 2024-06-14 06:43 | NUR ---
PT REPORTS THAT SHE HAD A GOOD NIGHT.MAINTAINED OXYGEN SATURATION>90% ON AIRVO 40L,42% FIO2.TOLERATED WELL REPOSITIONING Q2H.PT DENIES PAIN,DENIES SOB,DENIES NEEDS AT THIS TIME.CALL LIGHT AND PT'S ITEMS WITHIN REACH.WILL GIVE REPORT TO DAYSHIFT NURSE FOR CONTINUITY OF CARE.
--- NOTE | 2024-06-14 11:13 | NUR ---
The pt is oriented to self, family, place (hospital) but not to city/state. He says that he is in his hometown in [place]. Family is at bedside, assisting with reorientation and reassurance of the patient. His daughter and his are here now. CIWA score was 6 and he was given librium 25 mg this morning for hallucinations and mild confusion. He is calm and cooperative. He is tachypneic but denies dyspnea. No wheezing, no crackles noted on auscultation anterior and posterior chest. He is also tachycardic, rate 103-118 bpm with minimal activity in bed. Blood pressure is stable and he is no longer requiring any supplemental oxygen. Spo2 93% on room air at this time. He tolerated clear liquid diet this morning, and it has been advanced to full liquid which he has started slowly and so far is tolerating well.
--- NOTE | 2024-06-14 11:19 | NUR ---
PT is alert, oriented and very hard of hearing. Reportedly she has hearing aids but does not wear them. She states she is not doing well this morning. She is barely tolerating activity of eating while sitting up in bed and working with Occupational therapist this morning was taxing. She is tachypneic, dyspneic and hypoxic to 86% while eating breakfast on Air vo with settings of 40 L/min and 36% FiO2. Increased FiO2 to 40% brought her spo2 to 88-89% while eating, 90-92% at rest. She is bedfast at baseline except for getting up to [facility] at baseline her daughter in [facility] states, and also uses 3 l/min O2 at home.
--- NOTE | 2024-06-14 14:23 | NUR ---
Intolerant of activity today; she declined OOB to BSC and has been using the bedpan to attempt a BM today. Frequent repositioning. Caregiver at bedside states that the pt usually stays in bed the past 2 years, exiting only to use the BSC. Caregiver asserts that the pt has never had any skin breakdown because the pt is always repositioning herself. Lung sound are clearer than this morning. Her cough is dry. She says that she is liking the CPT. She also demonstrated good use of the incentive spirometer.
--- NOTE | 2024-06-14 17:35 | NUR ---
PALLIATIVE CARE NOTE: MET WITH LUCIWesley BULLARD ALSO SON AND HIS IN ROOM WITH PATIENT. ALEAH REPORTS HIS MOM HAS BEEN BEDRIDDEN FOR THE PAST TWO YEARS. SHE IS ON 3 LPM O2 VIA NC. AT HOME PT GETS SOB. ALEAH REPORTS HIS BROTHER AND HIS ARE THE PRIMARY CAREGIVERS AND HE MAKES FINANCIAL AND MEDICAL DECISIONS. ALEAH REPORTS THE DOCTOR TOLD HIM HIS MOM WAS DECLINING AND NOW HAS STABILIZED BUT IS NOT IMPROVING YET TO HER BASELINE. ALEAH ADMITTED HIS MOMS CARE HAS GOTTEN MORE DIFFICULT. THEY HAVE TO MINCE HER FOOD AT HOME INTO TINY BITES OR SHE WILL CHOKE ESPECIALLY WHEN SHE FORGETS TO STOP TALKING WHEN SHE EATS. I DISCUSSED THE CONVERSATION I HAD WITH PT YESTERDAY ABOUT GOALS OF CARE. PRITI CONFIRMS SHE WANTS TO DO WHAT SHE CAN TO IMPROVE TO BACK TO BASELINE. ALEAH ASKS WHAT ASSISTANCE IS AVAILABLE. ALEAH INFORMED AT THIS TIME IT IS TOO SOON TO KNOW WHAT SERVICES SHE MAY NEED AND DEPENDS ON HOW MUCH SHE IMPROVES. ALEAH AGREES FOR ME TO CALL WITH UPDATE AFTER DISCUSSING WITH DR. RIGGINS. SPOKE TO DR. RIGGINS. AT THIS TIME DR. RIGGINS WANTS TO SEE IF PT CAN MAKE IMPROVEMENT OVER THE NEXT COUPLE OF DAYS. DR. RIGGINS STATED HOSPICE WOULD BE APPROPRIATE IF DISCHARGED HOME. UPDATED ALEAH ON PROGNOSIS. EXPLAINED TO HIM IF HE WAS NEEDING EXTRA ASSISTANCE IN THE HOME, HIS MOM WOULD QUALIFY FOR HOSPICE SERVICES IF THAT IS AGREEABLE TO EVERYONE. EXPLAINED WHAT SERVICES ARE PROVIDED BY HOSPICE AND GOALS OF CARE ARE QUALITY OF LIFE AND TO TRY TO REMAIN HOME WITH SYMPTOM MANAGEMENT VS GOING TO HOSPITAL FOR TREATMENT. ALEAH ASKED QUESTIONS AND STATED HE WOULD TALK TO FAMILY ABOUT HOSPICE OPTION. IF AGREEABLE HE WILL REQUEST FURTHER INFORMATION. OF GOING TO
--- NOTE | 2024-06-14 19:25 | NUR ---
ASSUMPTION OF CARE ASSUMED PT'S CARE 1899,BEDSIDE REPORT COMPLETED WITH DAYSHIFT NURSE.PT AWAKE WATCHING TV,ON AIRVO 40L 39%FIO2.PT DENIES PAIN,DENIES SOB.PLAN OF CARE REVIEWED.CALL LIGHT AND PT'S ITEMS WITHIN REACH.WILL CONTINUE TO MONITOR.
[2024-06-15 00:09] VITALS: BP 160/74
[2024-06-15 04:19] VITALS: BP 133/63
[2024-06-15 05:19] LABS: Hemoglobin 9.4 g/dL (11.5-16.0); Mean Corpuscular HGB 29.3 pg (26.0-34.0); Mean Corpuscular HGB Conc 33.6 g/dL (31.5-36.5); Mean Corpuscular Volume 87 fL (80-100); Mean Platelet Volume 9.4 fL (9.1-12.4); Platelet Count 422 K/mm3 (150-400); RDW Coefficient Variation 16.1 % (11.7-14.2); RDW Standard Deviation 47.5 fL (35.1-46.3); Red Blood Cell Count 3.21 M/mm3 (3.80-5.20); White Blood Cell Count 18.72 K/mm3 (4.00-11.30)
[2024-06-15 05:39] LABS: Anion Gap 6 mmol/L (3-11); Blood Urea Nitrogen 51 mg/dL (8-24); Bun/Creatinine Ratio 55.9 (12.0-20.0); CO2, Blood 28 mmol/L (21-32); Calcium, Blood 8.5 mg/dL (8.5-10.1); Chloride, Blood 108 mmol/L (98-108); Creatinine, Blood 0.91 mg/dL (0.40-1.00); Glomerular Filtration Rate 61 (60-); Glucose, Blood 176 mg/dL (70-99); Potassium, Blood 4.1 mmol/L (3.5-5.5); Sodium, Blood 138 mmol/L (136-145); Vancomycin, Trough 12.6 ug/mL (5.0-10.0)
--- NOTE | 2024-06-15 06:31 | NUR ---
PT REPORTS THAT SHE SLEPT WELL AFTER SHE HAD A BOWEL MOVEMENT.PT WAS TRANSFERRED TO THE BEDSIDE COMMODE AT THE BEGINNING OF THE SHIFT WITH THREE ASSIST,GAITBELT AND A WALKER.PT DECLINED TO USE THE BEDPAN.PT'S WOB BREATHING INCREASED,OXYGEN SATURATION DROPPED DOWN TO 82% ON 40L AND 42% FIO2.PT WAS GIVEN PRN ROXANOL FOR AIR HUNGER PRIOR TO THE TRANSFER.PT'S BREATHING AND OXYGEN SATURATION IMPROVED WITH FIO2 OF 62%.PT HAD A MEDIUM HARD STOOL BLACK IN COLOR,SCANT AMOUNT OF BLOOD NOTED IN THE WIPE USED TO CLEAN HER BOTTOM.PT'S FIO2 TURNED DOWN TO 43% ONCE SHE SETTLED DOWN IN BED.PT MAINTAINED OXYGEN SATURATION >94% THROUGHOUT THE NIGHT.PT DENIES PAIN,DENIES SOB,DENIES NEEDS AT THIS TIME.CALL LIGHT AND PT'S ITEMS WITHIN REACH.WILL REPORT TO DAYSHIFT NURSE FOR CONTINUITY OF CARE.
[2024-06-15 07:59] VITALS: BP 143/63
--- NOTE | 2024-06-15 10:35 | NUR ---
Pt c/o feeling short of breath. she is lying in bed, HOB elevated at 40 degrees. RR 36/min and use of accessory muscles. spo2 is 93 on air vo settings 40 l/min and 42% fio2. given ordered PRN roxanol for air hunger and anxiety.
--- NOTE | 2024-06-15 10:40 | NUR ---
Also given atarax for anxiety at this time. Assisted to reposition to pt's comfort.
[2024-06-15 11:22] VITALS: BP 152/77
--- NOTE | 2024-06-15 11:27 | NUR ---
Pt states she feels she is dying. She denies increased SOB or anxiety. She states she is "just tired." We discussed comfort care and hospice. She is agreeable to comfort care, and home with hospice if we can wean her from airvo. Dr. Santana in agreement, ordered comfort care, hospice referral. Pt also having solid, hard BM's. Will begin laxative.
[2024-06-15] MEDS ORDERED: LORazepam 1 MG Tab PO PRN (11:35)
[2024-06-15] MEDS ORDERED: Morphine Sulfate 20 MG/1ML 1 ML Oral Syringe SL PRN (11:35)
--- NOTE | 2024-06-15 11:48 | NUR ---
"Spiritual care Visit | Pt. Request Recievde a call from the pts. nurse to come to bedside at the pts. request. Earlier today the Pt. agreed to Comfort care with the hopes of going home on hospice. Pt. displays evidence of some anxiety and fear, but the Pt. verbalized that her concerns were about her family. Facilitated life review, and Pt. verbalized about her that passed long ago, and her family. With theraputic listening and a calming pastoral presence the Pt. displayed evidence of a more peace. Pt. 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 Prayed with the Pt. Pt. verbalized gratitude for the spiritual care visit and welcomed this blueprint assembler to return."
--- NOTE | 2024-06-15 15:57 | NUR ---
UPDATE OF ORDERS PT STARTED ON COMFORT CARE. REVISEMENT OF MEDICATIONS TO ALIGN WITH EOL CARE.
[2024-06-15] MEDS ORDERED: MethylPREDNISolone Sod Succ 40 MG VIAL IV SCH (16:00)
[2024-06-15] MEDS ORDERED: Docusate Sodium/Senna 1 Tab PO SCH (21:00)
--- NOTE | 2024-06-16 03:17 | NUR ---
SHIFT SUMMARY PT SLEEPY MOST OF THE SHIFT. HAS DENIED PAIN SO FAR THIS SHIFT. RESPIRATIONS EVEN AND UNLABORED. Q2 TURNS PERFORMED. NO FAMILY PRESENT AT BEDSIDE AT THIS TIME.
[2024-06-16] MEDS ORDERED: Morphine Sulfate 4 MG/1 ML Injection IV PRN (10:10)
[2024-06-16] MEDS ORDERED: Q-Tussin100 MG/5 M PO (10:49)
[2024-06-16] MEDS ORDERED: GUAI600T33 PO (10:49)
[2024-06-16] MEDS ORDERED: PRED20 PO (10:50)
[2024-06-16] MEDS ORDERED: Ativan1 MG PO (10:50)
[2024-06-16] MEDS ORDERED: MORP20L SL (10:50)
--- NOTE | 2024-06-16 12:31 | NUR ---
TRANSPORT ARRIVED AT 1150. DISCHARGE PACKET PROVIDED TO TRANSPORT TEAM. FAMILY ALSO PROVIDED WITH A DISCHARGE PACKET AND A MEDICATION LIST. PT SLID FOR BED TO [facility] VIA 4 PEOPLE AND ON 3L NC. PT PERSONAL BELONGINGS WITH FAMILY AT TIME OF DISCHARGE.
== END 2024-06-16 12:29 | disposition hospice, home (50) | DRG 871 ==
LOC: ER 11:35 → PCU 15:21
PROVIDERS: Emergency Medicine; Internal Medicine; Student in an Organized Health Care Education/Training Program; ADMIT Internal Medicine
PROC: 5A09357 Assistance with Respiratory Ventilation, Less than 24 Consecutive Hours, Continuous Positive Airway Pressure (ICD-10-PCS; principal; 2024-06-07)
PROC: 0T9B70Z Drainage of Bladder with Drainage Device, Via Natural or Artificial Opening (ICD-10-PCS; 2024-06-07)
PROC: 4A033R1 Measurement of Arterial Saturation, Peripheral, Percutaneous Approach (ICD-10-PCS; 2024-06-08)
PROC: 5A0935A Assistance with Respiratory Ventilation, Less than 24 Consecutive Hours, High Flow/Velocity Cannula (ICD-10-PCS; 2024-06-15)
DX: A41.9 Sepsis, unspecified organism (principal); G92.8 Other toxic encephalopathy; J18.9 Pneumonia, unspecified organism; J96.21 Acute and chronic respiratory failure with hypoxia; J96.22 Acute and chronic respiratory failure with hypercapnia; J44.1 Chronic obstructive pulmonary disease with (acute) exacerbation; E87.20 Acidosis, unspecified; N17.9 Acute kidney failure, unspecified; E87.1 Hypo-osmolality and hyponatremia; J44.0 Chronic obstructive pulmonary disease with (acute) lower respiratory infection; N39.0 Urinary tract infection, site not specified; Z66 Do not resuscitate; R65.20 Severe sepsis without septic shock; I10 Essential (primary) hypertension; Z51.5 Encounter for palliative care; E78.5 Hyperlipidemia, unspecified; D63.8 Anemia in other chronic diseases classified elsewhere; I73.9 Peripheral vascular disease, unspecified; D50.9 Iron deficiency anemia, unspecified; R35.0 Frequency of micturition; F41.9 Anxiety disorder, unspecified; E87.70 Fluid overload, unspecified; Z90.721 Acquired absence of ovaries, unilateral; Z95.828 Presence of other vascular implants and grafts; Z98.49 Cataract extraction status, unspecified eye; Z87.891 Personal history of nicotine dependence; Z79.01 Long term (current) use of anticoagulants; Z99.81 Dependence on supplemental oxygen; Z88.0 Allergy status to penicillin; Z88.5 Allergy status to narcotic agent; Z88.1 Allergy status to other antibiotic agents; Z91.048 Other nonmedicinal substance allergy status; Z88.8 Allergy status to other drugs, medicaments and biological substances; Z79.82 Long term (current) use of aspirin; Z79.51 Long term (current) use of inhaled steroids; Z79.899 Other long term (current) drug therapy; Z86.73 Personal history of transient ischemic attack (TIA), and cerebral infarction without residual deficits; Z86.711 Personal history of pulmonary embolism; Z90.89 Acquired absence of other organs; Z90.49 Acquired absence of other specified parts of digestive tract; Z79.891 Long term (current) use of opiate analgesic
CPT/HCPCS: 0202U; 0241U; 36415; 36600; 51701; 51702; 71045; 74176; 78580; 80048; 80202; 81001; 82803; 83605; 83880; 84145; 84484; 85007; 85025; 85027; 85379; 85610; 85730; 87040; 87086; 92526; 92610; 93005; 93010; 93306; 94640; 94644; 94645; 94660; 94664; 94667; 94668; 94760; 94762; 96365; 96366; 96375; 97110; 97165; 97530; 99285-25; A9270; A9540; J0360; J0692; J0696; J1940; J2060; J2270; J2405; J2919; J3370; J3475; J7030; J7050